=== PATIENT | male | born 1940 | race Caucasian/White ===

== ENCOUNTER 2018-11-28 15:35 | Inpatient (IN) ==
[2018-11-28] MEDS ORDERED: Sod Chloride 0.9% Inj 1,000 ML IV.SIG ONE (16:33)
--- NOTE | 2018-11-28 16:57 | ED ---
HPI General Chief Complaint: Syncope Stated Complaint: Dizzy/evac Time Seen by Provider: 11/28/18 16:17 Source: patient and family (daughter, Liane) Mode of arrival: ambulatory Limitations: no limitations History of Present Illness HPI narrative: 78-year-old male with a history of ESRD on HD Monday, A fib on BASA, h/o C diff s/p fecal transplant presents to the emergency department via EVAC evaluation of a syncopal episode that occurred earlier today and weakness that started a few days ago. Patient was in dialysis this morning and 10 minutes into dialysis he states he "blacked out" and regained consciousness shortly afterwards. Daughter states they 'did not remove any fluid' from in because of this incident. Says when he got home, he was standing up from having a bowel movement and had an episode of falling forward, hitting his chest wall on his walker. Denies hitting his head. Denies chest pain or shortness of breath. States he feels 'ok' and has no complaints. Evac states his SBP was in the 70s that improved to 110s after 500cc NS administered. His daughter assists with the history and states he has had watery , foul-smelling diarrhea over the last couple of days. She believes he has developed C diff. She reports completion of antibiotics recently for MRSA after a hospitalization at [facility]. 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 Dr. Valdes is is PCP. Related Data Home Medications Medication Instructions Recorded Confirmed acidophilus-sporogenes 1 tab PO DAILY 11/28/18 11/28/18 amiodarone 200 mg PO DAILY 11/28/18 11/28/18 aspirin [Aspir-81] 81 mg PO DAILY 11/28/18 11/28/18 atorvastatin 10 mg PO QPM 11/28/18 11/28/18 famotidine 20 mg PO DAILY 11/28/18 11/28/18 fludrocortisone 0.2 mg PO DAILY 11/28/18 11/28/18 fluticasone 1 inh INHALATION Q12H 11/28/18 11/28/18 insulin glargine 15 unit SUBCUT HS 11/28/18 11/28/18 midodrine 10 mg PO BID 11/28/18 11/28/18 vitamin B complex-folic acid 1 tab PO DAILY 11/28/18 11/28/18 Allergies Allergy/AdvReac Type Severity Reaction Status Date / Time No Known Allergies Allergy Verified 11/28/18 15:57 Review of Systems ROS: all other systems reviewed are negative [facility] Medical History Medical History [place] (hard of hearing) (Acute) Hypotension (Acute) C. difficile colitis (Chronic) Diabetes mellitus (Chronic) ESRD (end stage renal disease) on dialysis (Chronic) History of left above knee amputation (Chronic) Surgical History Surgical History Status post unilateral below knee amputation (Acute) Family History Family History Other Family history unknown Social History Social History Substance History: No History of Abuse Second Hand Smoke Exposure: No Smoking Status: Never smoker How Often Do You Have a Drink Containing Alcohol: Never Recent Travel in [facility] within the Last 8 Weeks: No Recent Out of Country Travel within the Last 8 Weeks: No Immunization History Tetanus Immunization: >5 Years Exam Narrative Exam Narrative: GENERAL: WD, WN in NAD SKIN: Focused skin assessment warm/dry. HEAD: Atraumatic. Normocephalic. EYES: Pupils equal and round. No scleral icterus. No injection or drainage. ENT: No nasal bleeding or discharge. Mucous membranes pink and moist. No tonsillar hypertrophy or exudate. NECK: Trachea midline. No JVD. No meningismus. No midline tenderness. CARDIOVASCULAR: Regular rate and rhythm. No murmur appreciated. RESPIRATORY: No accessory muscle use. Clear to auscultation. Breath sounds equal bilaterally. GASTROINTESTINAL: Abdomen soft, non-tender, nondistended. No CVAT. MUSCULOSKELETAL: No obvious deformities. No clubbing. No cyanosis. No edema. No tenderness to palpation of the calves. Sensation intact to bilateral lower extremities. NEUROLOGICAL: Awake and obtunded. No obvious cranial nerve deficits. Motor grossly within normal limits. Normal speech. Answers questions appropriately but slow to answer. PSYCHIATRIC: Appropriate mood and affect; insight and judgment normal. Course Initial Documented Vital Signs Pulse Rate 87 11/28/18 15:46 Respiratory Rate 16 11/28/18 15:46 Blood Pressure 110/53 L 11/28/18 15:46 Pulse Oximetry 98 11/28/18 15:46 Last Documented Vital Signs Temperature 98.1 F 11/29/18 07:45 Pulse Rate 62 11/29/18 07:45 Respiratory Rate 16 11/29/18 07:45 Blood Pressure 102/50 L 11/29/18 07:45 Pulse Oximetry 100 11/29/18 07:45 Medical Decision Making EVERETT Attestation EVERETT supervised visit: Yes Attestation: I, Dr. Pham, have reviewed the advance practice practitioner's documentation and am in agreement, met with the patient face to face, made the diagnosis, and the medical decision making was done by me. *My assessment and Findings: Syncope. History of end-stage renal disease on dialysis. MDM Narrative Medical decision making narrative: 78y male presents to the ED via EVAC for evaluation of 1 syncopal episode, presyncope, generalized weakness, and diarrhea. History is assisted by his daughter who states he has been more fatigued and weak over the last several days. She reports a history of C diff s/ p fecal transplant in June and she has noticed increased, watery, foul diarrhea for the last several days after completing antibiotics for 'MRSA of the spine'. He was last seen at [facility]. Vital signs are stable. Physical exam findings demonstrate a well-developed well-nourished 78-year-old male in no acute distress. He is no complaints. His physical exam is unremarkable at this time. Labs are notable for WBC 9.7, H&H 11.1&33.6, INR 1.1, Potassium 3.1, BUN/Cr 21/ 3.93, Troponin <0.02, BNP 263, UA small leukocyte esterase, WBC 13, few bacteria. Ordered 20meq potassium. Will replenish cautiously d/t his history of ESRD. Head CT without evidence of ICH bleed. CXR without acute process. Patient will be admitted for syncope, presyncope, and generalized weakness. Stool studies pending. I spoke with Dr. Kern who agreed to the admission. Medical Screen Exam Complete: Yes Emergency Medical Condition: Yes Differential Diagnosis Differential Diagnosis: Dehydration, C. difficile, diarrhea, syncope, presyncope , generalized weakness Lab Data Result diagrams: 11/29/18 08:09 11/29/18 08:09 Lab Results 11/28/18 11/28/18 11/28/18 Range/Units 16:42 16:42 16:42 WBC 9.7 (4.0-11.0) th/mm3 RBC 3.52 L (4.50-5.90) mil/mm3 Hgb 11.1 L (13.0-17.0) gm/dL Hct 33.6 L (39.0-51.0) % MCV 95.5 (80.0-100.0) fL MCH 31.6 (27.0-34.0) pg MCHC 33.1 (32.0-36.0) % RDW 17.0 (11.6-17.2) % Plt Count 264 (150-450) th/mm3 MPV 8.7 (7.0-11.0) fL Neut % (Auto) 57.3 (16.0-70.0) % Lymph % (Auto) 32.6 (9.0-44.0) % [place] % (Auto) 7.1 (0.0-8.0) % Eos % (Auto) 2.5 (0.0-4.0) % Baso % (Auto) 0.5 (0.0-2.0) % Neut # (Auto) 5.6 (1.8-7.7) th/mm3 Lymph # (Auto) 3.2 (1.0-4.8) th/mm3 [place] # (Auto) 0.7 (0.0-0.9) th/mm3 Eos # (Auto) 0.2 (0.0-0.4) th/mm3 Baso # (Auto) 0.0 (0.0-0.2) th/mm3 WBC Differential . Differential Comment Auto diff final PT 10.7 (9.8-11.6) sec INR 1.1 Ratio APTT 37.1 H (23.4-31.7) sec Sodium 143 (136-145) meq/L Potassium 3.1 L (3.5-5.1) meq/L Chloride 109 H (98-107) meq/L Carbon Dioxide 25.8 (21.0-32.0) meq/L Anion Gap 8 (5-15) meq/L BUN 21 H (7-18) mg/dL Creatinine 3.93 H (0.60-1.30) mg/dL Estimated GFR 15 L (>89) mL/min POC Glucose (68-110) mg/dl Random Glucose 126 H (74-106) mg/dL Calcium 7.7 L (8.5-10.1) mg/dL Magnesium 1.6 (1.5-2.5) mg/dL Total Bilirubin 0.3 (0.2-1.0) mg/dL AST 16 (15-37) U/L ALT 11 L (12-78) U/L Alkaline Phosphatase 79 (45-117) U/L Troponin I Less than 0.02 L (0.02-0.05) ng/mL B-Natriuretic Peptide (0-100) pg/mL Total Protein 5.9 L (6.4-8.2) g/dL Albumin 2.7 L (3.4-5.0) g/dL Urine Color (Yellw/Straw) Urine Clarity (Clear) Urine pH (5.0-8.5) Ur Specific [place] (1.002-1.035) Urine Protein (Neg-Trace) mg/dL Urine Glucose (UA) (Negative) mg/dL Urine Ketones (Negative) mg/dL Urine Occult Blood (Negative) Urine Nitrate (Negative) Urine Bilirubin (Negative) Urine Urobilinogen (Less than 2) mg/dL Ur Leukocyte Esterase (Negative) Urine RBC (0-3) /hpf Urine WBC (0-5) /hpf Ur Squamous Epith Cells (0-5) /hpf Amorphous Sediment (None) /hpf Urine Bacteria (None) /hpf Micro UA Comment Ur Microscopic Review Urine Culture Comments Stl C.difficile DNA Amp (Negative) St C. diff Tox Epid 027 (Negative) 11/28/18 11/28/18 11/28/18 Range/Units 16:42 18:37 18:38 WBC (4.0-11.0) th/mm3 RBC (4.50-5.90) mil/mm3 Hgb (13.0-17.0) gm/dL Hct (39.0-51.0) % MCV (80.0-100.0) fL MCH (27.0-34.0) pg MCHC (32.0-36.0) % RDW (11.6-17.2) % Plt Count (150-450) th/mm3 MPV (7.0-11.0) fL Neut % (Auto) (16.0-70.0) % Lymph % (Auto) (9.0-44.0) % [place] % (Auto) (0.0-8.0) % Eos % (Auto) (0.0-4.0) % Baso % (Auto) (0.0-2.0) % Neut # (Auto) (1.8-7.7) th/mm3 Lymph # (Auto) (1.0-4.8) th/mm3 [place] # (Auto) (0.0-0.9) th/mm3 Eos # (Auto) (0.0-0.4) th/mm3 Baso # (Auto) (0.0-0.2) th/mm3 WBC Differential Differential Comment PT (9.8-11.6) sec INR Ratio APTT (23.4-31.7) sec Sodium (136-145) meq/L Potassium (3.5-5.1) meq/L Chloride (98-107) meq/L Carbon Dioxide (21.0-32.0) meq/L Anion Gap (5-15) meq/L BUN (7-18) mg/dL Creatinine (0.60-1.30) mg/dL Estimated GFR (>89) mL/min POC Glucose (68-110) mg/dl Random Glucose (74-106) mg/dL Calcium (8.5-10.1) mg/dL Magnesium (1.5-2.5) mg/dL Total Bilirubin (0.2-1.0) mg/dL AST (15-37) U/L ALT (12-78) U/L Alkaline Phosphatase (45-117) U/L Troponin I (0.02-0.05) ng/mL B-Natriuretic Peptide 263 H (0-100) pg/mL Total Protein (6.4-8.2) g/dL Albumin (3.4-5.0) g/dL Urine Color Yellow (Yellw/Straw) Urine Clarity Hazy H (Clear) Urine pH 5.0 (5.0-8.5) Ur Specific [place] 1.014 (1.002-1.035) Urine Protein 30 H (Neg-Trace) mg/dL Urine Glucose (UA) Negative (Negative) mg/dL Urine Ketones Negative (Negative) mg/dL Urine Occult Blood Moderate H (Negative) Urine Nitrate Negative (Negative) Urine Bilirubin Negative (Negative) Urine Urobilinogen Less than 2 (Less than 2) mg/dL Ur Leukocyte Esterase Small H (Negative) Urine RBC 1 (0-3) /hpf Urine WBC 13 H (0-5) /hpf Ur Squamous Epith Cells <1 (0-5) /hpf Amorphous Sediment Rare H (None) /hpf Urine Bacteria Few H (None) /hpf Micro UA Comment Culture indicated Ur Microscopic Review Not Reportable Urine Culture Comments Culture indicated Stl C.difficile DNA Amp Positive H (Negative) St C. diff Tox Epid 027 Positive H (Negative) 11/28/18 11/28/18 11/29/18 Range/Units 21:38 22:45 03:19 WBC (4.0-11.0) th/mm3 RBC (4.50-5.90) mil/mm3 Hgb (13.0-17.0) gm/dL Hct (39.0-51.0) % MCV (80.0-100.0) fL MCH (27.0-34.0) pg MCHC (32.0-36.0) % RDW (11.6-17.2) % Plt Count (150-450) th/mm3 MPV (7.0-11.0) fL Neut % (Auto) (16.0-70.0) % Lymph % (Auto) (9.0-44.0) % [place] % (Auto) (0.0-8.0) % Eos % (Auto) (0.0-4.0) % Baso % (Auto) (0.0-2.0) % Neut # (Auto) (1.8-7.7) th/mm3 Lymph # (Auto) (1.0-4.8) th/mm3 [place] # (Auto) (0.0-0.9) th/mm3 Eos # (Auto) (0.0-0.4) th/mm3 Baso # (Auto) (0.0-0.2) th/mm3 WBC Differential Differential Comment PT (9.8-11.6) sec INR Ratio APTT (23.4-31.7) sec Sodium (136-145) meq/L Potassium (3.5-5.1) meq/L Chloride (98-107) meq/L Carbon Dioxide (21.0-32.0) meq/L Anion Gap (5-15) meq/L BUN (7-18) mg/dL Creatinine (0.60-1.30) mg/dL Estimated GFR (>89) mL/min POC Glucose 89 72 (68-110) mg/dl Random Glucose (74-106) mg/dL Calcium (8.5-10.1) mg/dL Magnesium (1.5-2.5) mg/dL Total Bilirubin (0.2-1.0) mg/dL AST (15-37) U/L ALT (12-78) U/L Alkaline Phosphatase (45-117) U/L Troponin I (0.02-0.05) ng/mL B-Natriuretic Peptide (0-100) pg/mL Total Protein (6.4-8.2) g/dL Albumin (3.4-5.0) g/dL Urine Color (Yellw/Straw) Urine Clarity (Clear) Urine pH (5.0-8.5) Ur Specific [place] (1.002-1.035) Urine Protein (Neg-Trace) mg/dL Urine Glucose (UA) (Negative) mg/dL Urine Ketones (Negative) mg/dL Urine Occult Blood (Negative) Urine Nitrate (Negative) Urine Bilirubin (Negative) Urine Urobilinogen (Less than 2) mg/dL Ur Leukocyte Esterase (Negative) Urine RBC (0-3) /hpf Urine WBC (0-5) /hpf Ur Squamous Epith Cells (0-5) /hpf Amorphous Sediment (None) /hpf Urine Bacteria (None) /hpf Micro UA Comment Ur Microscopic Review Urine Culture Comments Stl C.difficile DNA Amp Positive H (Negative) St C. diff Tox Epid 027 Positive H (Negative) 11/29/18 11/29/18 11/29/18 Range/Units 08:09 08:09 08:31 WBC 10.9 (4.0-11.0) th/mm3 RBC 3.01 L (4.50-5.90) mil/mm3 Hgb 9.7 L (13.0-17.0) gm/dL Hct 28.8 L (39.0-51.0) % MCV 95.7 (80.0-100.0) fL MCH 32.1 (27.0-34.0) pg MCHC 33.5 (32.0-36.0) % RDW 17.4 H (11.6-17.2) % Plt Count 247 (150-450) th/mm3 MPV 8.3 (7.0-11.0) fL Neut % (Auto) 48.4 (16.0-70.0) % Lymph % (Auto) 39.8 (9.0-44.0) % [place] % (Auto) 7.9 (0.0-8.0) % Eos % (Auto) 3.5 (0.0-4.0) % Baso % (Auto) 0.4 (0.0-2.0) % Neut # (Auto) 5.3 (1.8-7.7) th/mm3 Lymph # (Auto) 4.3 (1.0-4.8) th/mm3 [place] # (Auto) 0.9 (0.0-0.9) th/mm3 Eos # (Auto) 0.4 (0.0-0.4) th/mm3 Baso # (Auto) 0.0 (0.0-0.2) th/mm3 WBC Differential . Differential Comment Auto diff final PT (9.8-11.6) sec INR Ratio APTT (23.4-31.7) sec Sodium 145 (136-145) meq/L Potassium 2.9 L* (3.5-5.1) meq/L Chloride 111 H (98-107) meq/L Carbon Dioxide 25.3 (21.0-32.0) meq/L Anion Gap 9 (5-15) meq/L BUN 23 H (7-18) mg/dL Creatinine 4.58 H (0.60-1.30) mg/dL Estimated GFR 12 L (>89) mL/min POC Glucose 48 L* (68-110) mg/dl Random Glucose 43 L* (74-106) mg/dL Calcium 7.7 L (8.5-10.1) mg/dL Magnesium (1.5-2.5) mg/dL Total Bilirubin (0.2-1.0) mg/dL AST (15-37) U/L ALT (12-78) U/L Alkaline Phosphatase (45-117) U/L Troponin I (0.02-0.05) ng/mL B-Natriuretic Peptide (0-100) pg/mL Total Protein (6.4-8.2) g/dL Albumin (3.4-5.0) g/dL Urine Color (Yellw/Straw) Urine Clarity (Clear) Urine pH (5.0-8.5) Ur Specific [place] (1.002-1.035) Urine Protein (Neg-Trace) mg/dL Urine Glucose (UA) (Negative) mg/dL Urine Ketones (Negative) mg/dL Urine Occult Blood (Negative) Urine Nitrate (Negative) Urine Bilirubin (Negative) Urine Urobilinogen (Less than 2) mg/dL Ur Leukocyte Esterase (Negative) Urine RBC (0-3) /hpf Urine WBC (0-5) /hpf Ur Squamous Epith Cells (0-5) /hpf Amorphous Sediment (None) /hpf Urine Bacteria (None) /hpf Micro UA Comment Ur Microscopic Review Urine Culture Comments Stl C.difficile DNA Amp (Negative) St C. diff Tox Epid 027 (Negative) 11/29/18 11/29/18 11/29/18 Range/Units 08:38 09:27 09:54 WBC (4.0-11.0) th/mm3 RBC (4.50-5.90) mil/mm3 Hgb (13.0-17.0) gm/dL Hct (39.0-51.0) % MCV (80.0-100.0) fL MCH (27.0-34.0) pg MCHC (32.0-36.0) % RDW (11.6-17.2) % Plt Count (150-450) th/mm3 MPV (7.0-11.0) fL Neut % (Auto) (16.0-70.0) % Lymph % (Auto) (9.0-44.0) % [place] % (Auto) (0.0-8.0) % Eos % (Auto) (0.0-4.0) % Baso % (Auto) (0.0-2.0) % Neut # (Auto) (1.8-7.7) th/mm3 Lymph # (Auto) (1.0-4.8) th/mm3 [place] # (Auto) (0.0-0.9) th/mm3 Eos # (Auto) (0.0-0.4) th/mm3 Baso # (Auto) (0.0-0.2) th/mm3 WBC Differential Differential Comment PT (9.8-11.6) sec INR Ratio APTT (23.4-31.7) sec Sodium (136-145) meq/L Potassium (3.5-5.1) meq/L Chloride (98-107) meq/L Carbon Dioxide (21.0-32.0) meq/L Anion Gap (5-15) meq/L BUN (7-18) mg/dL Creatinine (0.60-1.30) mg/dL Estimated GFR (>89) mL/min POC Glucose 50 L 54 L 70 (68-110) mg/dl Random Glucose (74-106) mg/dL Calcium (8.5-10.1) mg/dL Magnesium (1.5-2.5) mg/dL Total Bilirubin (0.2-1.0) mg/dL AST (15-37) U/L ALT (12-78) U/L Alkaline Phosphatase (45-117) U/L Troponin I (0.02-0.05) ng/mL B-Natriuretic Peptide (0-100) pg/mL Total Protein (6.4-8.2) g/dL Albumin (3.4-5.0) g/dL Urine Color (Yellw/Straw) Urine Clarity (Clear) Urine pH (5.0-8.5) Ur Specific [place] (1.002-1.035) Urine Protein (Neg-Trace) mg/dL Urine Glucose (UA) (Negative) mg/dL Urine Ketones (Negative) mg/dL Urine Occult Blood (Negative) Urine Nitrate (Negative) Urine Bilirubin (Negative) Urine Urobilinogen (Less than 2) mg/dL Ur Leukocyte Esterase (Negative) Urine RBC (0-3) /hpf Urine WBC (0-5) /hpf Ur Squamous Epith Cells (0-5) /hpf Amorphous Sediment (None) /hpf Urine Bacteria (None) /hpf Micro UA Comment Ur Microscopic Review Urine Culture Comments Stl C.difficile DNA Amp (Negative) St C. diff Tox Epid 027 (Negative) Imaging Data Radiologist's impression: Carotid Doppler Study 11/28/18 00:00 CONCLUSION: No hemodynamically significant stenosis involving either carotid artery. Antegrade flow involving both vertebral arteries. Chest X-Ray 11/28/18 16:33 CONCLUSION: Dialysis catheter in good position. Lungs are clear Head CT 11/28/18 16:33 CONCLUSION: 1. No acute intracranial abnormality. . ECG Data Attestation: I personally reviewed and interpreted this ECG as follows: Prior ECG tracings: not available for review Interpretation: sinus rhythm rate [address] elevation or depressions. Discharge Plan Discharge Disposition Patient Disposition: ED Admit(ED Internal Use Only) Discharge Condition Condition: Stable Discharge Order Discharge Orders: ED Use Only Admit Order (Routine); Ordered 11/28/18 Ordered By: Catina Inman Discharge Details Diagnosis: Syncope Physicians Team ED Provider: Bg Pham ED Midlevel Provider: Catina Inman Primary Care Provider: UNKNOWN, Attending Provider: Maribel Calvert Other Providers: Mayco Sawyer Status ED Status: Left Department Discharge Information Discharge Date/Time: 11/28/18 21:05
--- NOTE | 2018-11-28 17:12 | XR ---
EXAM DATE: 11/28/2018 5:00 PM EST AGE/SEX: 78 years / Male INDICATIONS: Evaluate Diaphragm. CLINICAL DATA: This is the patient's initial encounter. Patient reports that signs and symptoms have been present for 2 days and indicates a pain score of Nonresponsive. MEDICAL/SURGICAL HISTORY: Non-responsive. Non-responsive. COMPARISON: No prior exams available for comparison. FINDINGS: Dialysis catheter in good position. Lungs are symmetrically aerated but clear. The heart and pulmonary vascularity are normal. The portion of the bony skeleton visualized is unremarkable. CONCLUSION: Dialysis catheter in good position. Lungs are clear Electronically signed by: Samson Garay MD Board Certified Radiologist 11/28/2018 5:11 PM EST
--- NOTE | 2018-11-28 17:22 | CT ---
EXAM DATE: 11/28/2018 5:17 PM EST AGE/SEX: 78 years / Male INDICATIONS: Syncopal episode. CLINICAL DATA: This is the patient's initial encounter. Patient reports that signs and symptoms have been present for 1 day and indicates a pain score of 0/10. MEDICAL/SURGICAL HISTORY: Diabetes. Hypertension. Renal disease. None. RADIATION DOSE: 56.35 CTDI (mGy) COMPARISON: No prior exams available for comparison. TECHNIQUE: CT of the head without contrast. Using automated exposure control and adjustment of the mA and/or kV according to patient size, radiation dose was kept as low as reasonably achievable to ob tain optimal diagnostic quality images. DICOM format image data is available electronically for revi ew and comparison. FINDINGS: Cerebrum: The ventricles are normal for age. No evidence of midline shift, mass lesion, hemorrhage or acute infarction. No extraaxial fluid collections are seen. Posterior Fossa: The cerebellum and brainstem are intact. The 4th ventricle is midline. The cerebe llopontine angle is unremarkable. Extracranial: The visualized portion of the orbits is intact. Mucoperiosteal thickening left maxilla ry sinus. Skull: The calvaria is intact. No evidence of skull fracture. CONCLUSION: 1. No acute intracranial abnormality. . Electronically signed by: Jose Roberto Torres MD Board Certified Radiologist 11/28/2018 5:21 PM EST
[2018-11-28 17:41] LABS: Baso % (Auto) 0.5 % (0.0-2.0); Eos # (Auto) 0.2 th/mm3 (0.0-0.4); Eos % (Auto) 2.5 % (0.0-4.0); Hematocrit 33.6 % (39.0-51.0); Hemoglobin 11.1 gm/dL (13.0-17.0); Lymph # (Auto) 3.2 th/mm3 (1.0-4.8); Lymph % (Auto) 32.6 % (9.0-44.0); Mean Corpuscular HGB Conc 33.1 % (32.0-36.0); Mean Corpuscular Hemoglobin 31.6 pg (27.0-34.0); Mean Corpuscular Volume 95.5 fL (80.0-100.0); Mean Platelet Volume 8.7 fL (7.0-11.0); Mono # (Auto) 0.7 th/mm3 (0.0-0.9); Mono % (Auto) 7.1 % (0.0-8.0); Neut # (Auto) 5.6 th/mm3 (1.8-7.7); Neut % (Auto) 57.3 % (16.0-70.0); Platelet Count 264 th/mm3 (150-450); Red Blood Count 3.52 mil/mm3 (4.50-5.90); White Blood Count 9.7 th/mm3 (4.0-11.0)
[2018-11-28 17:48] LABS: Activated Partial Thrombo Time 37.1 sec (23.4-31.7); INR 1.1 Ratio; Prothrombin Time 10.7 sec (9.8-11.6)
[2018-11-28 18:36] LABS: Albumin 2.7 g/dL (3.4-5.0); Anion Gap 8 meq/L (5-15); Aspartate Aminotransferase 16 U/L (15-37); Blood Urea Nitrogen 21 mg/dL (7-18); Calcium 7.7 mg/dL (8.5-10.1); Carbon Dioxide 25.8 meq/L (21.0-32.0); Chloride 109 meq/L (98-107); Glomerular Filtration Rate 15 mL/min (>89); Glucose,Random 126 mg/dL (74-106); Magnesium 1.6 mg/dL (1.5-2.5); Potassium 3.1 meq/L (3.5-5.1); Sodium 143 meq/L (136-145)
[2018-11-28 18:43] LABS: Alanine Aminotransferase 11 U/L (12-78); Alkaline Phosphatase 79 U/L (45-117); Total Protein 5.9 g/dL (6.4-8.2)
[2018-11-28 19:20] LABS: Amorphous Sediment,Urine Rare /hpf; Bacteria,Urine Few /hpf; Bilirubin,Urine Negative (Negative); Clarity,Urine Hazy (Clear); Color,Urine Yellow (Yellw/Straw); Glucose,Urine (UA) Negative (Negative); Leukocyte Esterase,Urine Small (Negative); Nitrite,Urine Negative (Negative); Specific Gravity,Urine 1.014 (1.002-1.035); Squamous Epithelial Cell,Urine <1 /hpf (0-5)
[2018-11-28] MEDS ORDERED: Dextrose 50% in Water 50 ML Vial IV.PUSH PRN (20:34)
--- NOTE | 2018-11-28 20:34 | P.HPIM ---
History of Present Illness Primary Care Physician: UNKNOWN 78-year-old male with a past medical history significant for end-stage renal disease on dialysis, diabetes mellitus, hypotension, and hyperlipidemia presents to the emergency department for evaluation of a syncopal episode. The patient reports he was in dialysis earlier today when he felt dizzy and lightheaded and subsequently "blacked out." EMS was called with the patient refused transport at that time. He states later on in the day when he was leaving the restroom he had similar symptoms although denies any loss of consciousness at that time. He states he felt dizzy and lightheaded and had to prop himself up against the wall for extra support. The patient was recently hospitalized at [facility] where he was treated for MRSA infection. He states he was discharged approximately 1 week ago. He has a history of C. difficile and is status post fecal transplantation within the last year. He has a 3-day history of watery, explosive diarrhea that is foul-smelling. He denies any chest pain or shortness of breath. Intermittent crampy abdominal pain. No focal neurologic deficits. No fever/chills. [facility] Medical History Medical History [place] (hard of hearing) (Acute) Hypotension (Acute) C. difficile colitis (Chronic) Diabetes mellitus (Chronic) ESRD (end stage renal disease) on dialysis (Chronic) History of left above knee amputation (Chronic) Surgical History Surgical History Status post unilateral below knee amputation (Acute) Family History Family History Other Family history unknown Social History Social History Substance History: No History of Abuse Smoking Status: Former smoker How Often Do You Have a Drink Containing Alcohol: Never Recent Travel in [facility] within the Last 8 Weeks: No Recent Out of Country Travel within the Last 8 Weeks: No Immunization History Tetanus Immunization: >5 Years Medications and Allergies Allergies Allergy/AdvReac Type Severity Reaction Status Date / Time No Known Allergies Allergy Verified 11/28/18 15:57 Home Medications Medication Instructions Recorded Confirmed Type acidophilus-sporogenes 1 tab PO DAILY 11/28/18 11/28/18 History amiodarone 200 mg PO DAILY 11/28/18 11/28/18 History aspirin [Aspir-81] 81 mg PO DAILY 11/28/18 11/28/18 History atorvastatin 10 mg PO QPM 11/28/18 11/28/18 History famotidine 20 mg PO DAILY 11/28/18 11/28/18 History fludrocortisone 0.2 mg PO DAILY 11/28/18 11/28/18 History fluticasone 1 inh INHALATION Q12H 11/28/18 11/28/18 History insulin glargine 15 unit SUBCUT HS 11/28/18 11/28/18 History midodrine 10 mg PO BID 11/28/18 11/28/18 History vitamin B complex-folic acid 1 tab PO DAILY 11/28/18 11/28/18 History Active Medications: Active Medications Amiodarone HCl (Cordarone) 200 mg PO DAILY [facility] Aspirin (Ecotrin) 81 mg PO DAILY [facility] Atorvastatin Calcium (Lipitor) 10 mg PO QPM [facility] Fludrocortisone Acetate (Florinef) 0.2 mg PO DAILY [facility] Lactobacillus Acidophilus (Lactinex) 1 tab PO DAILY [facility] Non-Formulary Medication (Midodrine [Midodrine]) 10 mg PO BID [facility] Non-Formulary Medication (Insulin Glargine Inj) 15 unit SQ HS [facility] Physical Exam Vital signs: Vital Signs 11/28/18 15:46 11/28/18 15:57 11/28/18 17:24 Pulse Rate 87 77 76 Respiratory Rate 16 18 Blood Pressure 110/53 L Pulse Oximetry 98 98 11/28/18 18:14 11/28/18 19:03 Pulse Rate 75 75 Respiratory Rate 18 18 Blood Pressure 117/58 L 115/58 L Pulse Oximetry 100 95 Intake & Output 11/28/18 11/28/18 11/29/18 06:59 18:59 06:59 Intake Total 1000 / 1000 Balance 1000 / 1000 Weight 90.718 kg Intake: IV 1000 / 1000 NS Inj 1,000 ML @ Wide Open IV. 1000 / 1000 SIG BOLUS ONE Rx#:[id number] Narrative: Gen.: No acute distress Head: Normocephalic. Atraumatic. EENT: Pupils equal round and reactive to light. Nose without drainage. Airway intact. Throat without injection. Cardiovascular: Regular rate and rhythm. No murmurs, rubs or gallops. Respiratory: Lungs clear to auscultation bilaterally. No wheezes or rhonchi. Abdomen: Soft, nontender, nondistended. No peritoneal signs. Musculoskeletal: No gross deformities. No edema. Skin: No obvious rashes or erythema. Neuro: Sensory and motor grossly intact. Cranial nerves II through XII grossly intact. Results Labs CBC & Chem 7: 11/28/18 16:42 11/28/18 16:42 Imaging Impressions Chest X-Ray 11/28/18 16:33 CONCLUSION: Dialysis catheter in good position. Lungs are clear Head CT 11/28/18 16:33 CONCLUSION: 1. No acute intracranial abnormality. . Caprini VTE Risk Assessment Caprini VTE Risk Assessment: Moderate/High Risk (score >= 2) Caprini Risk Assessment Model: Point Value = 1 Point Value = 2 Point Value = 3 Point Value = 5 Age 41-60 Minor surgery BMI > 25 kg/m2 Swollen legs Varicose veins or History of unexplained or recurrent spontaneous Oral contraceptives or hormone replacement Sepsis (< 1 month) Serious lung disease, including pneumonia (< 1 month) Abnormal pulmonary function Acute myocardial infarction Congestive heart failure (< 1 month) History of inflammatory bowel disease Medical patient at bed rest Age 61-74 Arthroscopic surgery Major open surgery (> 45 min) Laparoscopic surgery (> 45 min) Malignancy Confined to bed (> 72 hours) Immobilizing plaster cast Central venous access Age >= 75 History of VTE Family history of VTE Factor V Leiden Prothrombin [id number] Lupus anticoagulant Anticardiolipin antibodies Elevated serum homocysteine Heparin-induced thrombocytopenia Other congenital or acquired thrombophilia Stroke (< 1 month) Elective arthroplasty Hip, pelvis, or leg fracture Acute spinal cord injury (< 1 month) Prophylaxis Regimen: Total Risk Factor Score Risk Level Prophylaxis Regimen 0-1 Low Early ambulation 2 Moderate Order ONE of the following: *Sequential Compression Device (SCD) *Heparin 5000 units SQ BID 3-4 Higher Order ONE of the following medications: *Heparin 5000 units SQ TID *Enoxaparin/Lovenox 40 mg SQ daily (WT < 150 kg, CrCl > 30 mL/min) *Enoxaparin/Lovenox 30 mg SQ daily (WT < 150 kg, CrCl > 10-29 mL/min) *Enoxaparin/Lovenox 30 mg SQ BID (WT < 150 kg, CrCl > 30 mL/min) AND/OR *Sequential Compression Device (SCD) 5 or more Highest Order ONE of the following medications: *Heparin 5000 units SQ TID (Preferred with Epidurals) *Enoxaparin/Lovenox 40 mg SQ daily (WT < 150 kg, CrCl > 30 mL/min) *Enoxaparin/Lovenox 30 mg SQ daily (WT < 150 kg, CrCl > 10-29 mL/min) *Enoxaparin/Lovenox 30 mg SQ BID (WT < 150 kg, CrCl > 30 mL/min) AND *Sequential Compression Device (SCD) Assessment and Plan Plan Assessment/plan: 1. Syncope Head CT negative for acute process Orthostatic vital signs pending, patient with history of hypotension Carotid ultrasound, echo pending 2. Diarrhea/history of C. difficile C. difficile toxin pending Stool studies pending Patient recently discharged from [facility] was treated with antibiotics for MRSA 3. Diabetes mellitus Continue home Lantus Sliding-scale insulin Monitor blood glucose 4. End-stage renal disease on dialysis Last dialyzed earlier today Patient's user interface artist, Dr. Braun consulted, appreciate assistance FEN Diabetic diet Electrolytes: Monitor and replete as needed Heparin
[2018-11-28] MEDS ORDERED: INSULIN GLARGINE 15 UNIT SQ SCH (21:00)
[2018-11-28] MEDS ORDERED: MIDODRINE 10 MG PO SCH (21:00)
--- NOTE | 2018-11-28 21:18 | US ---
EXAM DATE: 11/28/2018 9:12 PM EST AGE/SEX: 78 years / Male INDICATIONS: Syncope. CLINICAL DATA: This is the patient's initial encounter. Patient reports that signs and symptoms have been present for 1 day and indicates a pain score of 0/10. MEDICAL/SURGICAL HISTORY: Hypothyroidism. Diabetes. Renal disease, end stage. Dialysis. C. Difficile colitis - June 2018. . Left above the knee amputation. COMPARISON: No prior exams available for comparison. VELOCITY PARAMETERS: ICA/CCA Ratio: Right 1.0 , Left 0.8 ICA: Right 114 cm/sec, Left 130 cm/sec CCA: Right 103 cm/sec, Left 129 cm/sec ECA: Right 128 cm/sec, Left 81 cm/sec Vertebral: Right 35 cm/sec antegrade, Left 56 cm/sec antegrade FINDINGS: Right Carotid: Mild arteriosclerotic plaque is visualized.The waveforms are within normal limits. Left Carotid: Mild arteriosclerotic plaque is visualized. The waveforms are within normal limits. Other: None. CONCLUSION: No hemodynamically significant stenosis involving either carotid artery. Antegrade flow involving both vertebral arteries. Electronically signed by: Sharif Marques MD Board Certified Radiologist 11/28/2018 9:17 PM EST
[2018-11-28] MEDS: Insulin NovoLOG Aspart Correctional Sugar Inj SQ SCH (21:44)
[2018-11-28] MEDS ORDERED: Insulin Detemir Inj 1,000 UNIT/10 ML Vial SQ SCH (22:00)
[2018-11-28] MEDS: Heparin - SQ 10,000 UNITS/ML Vial SQ SCH (22:22)
[2018-11-29] MEDS: Insulin NovoLOG Aspart Correctional Sugar Inj SQ SCH ×5 (03:28→21:11)
[2018-11-29] MEDS: Lactobacillus Acidophilus/L. Spores Tablet PO SCH (08:33)
[2018-11-29] MEDS: Amiodarone 200 MG Tablet PO SCH (08:33)
[2018-11-29] MEDS: Heparin - SQ 10,000 UNITS/ML Vial SQ SCH ×2 (08:33→21:11)
[2018-11-29 08:59] LABS: Baso % (Auto) 0.4 % (0.0-2.0); Eos # (Auto) 0.4 th/mm3 (0.0-0.4); Eos % (Auto) 3.5 % (0.0-4.0); Hematocrit 28.8 % (39.0-51.0); Hemoglobin 9.7 gm/dL (13.0-17.0); Lymph # (Auto) 4.3 th/mm3 (1.0-4.8); Lymph % (Auto) 39.8 % (9.0-44.0); Mean Corpuscular HGB Conc 33.5 % (32.0-36.0); Mean Corpuscular Hemoglobin 32.1 pg (27.0-34.0); Mean Corpuscular Volume 95.7 fL (80.0-100.0); Mean Platelet Volume 8.3 fL (7.0-11.0); Mono # (Auto) 0.9 th/mm3 (0.0-0.9); Mono % (Auto) 7.9 % (0.0-8.0); Neut # (Auto) 5.3 th/mm3 (1.8-7.7); Neut % (Auto) 48.4 % (16.0-70.0); Platelet Count 247 th/mm3 (150-450); Red Blood Count 3.01 mil/mm3 (4.50-5.90); Red Cell Distribution Width 17.4 % (11.6-17.2); White Blood Count 10.9 th/mm3 (4.0-11.0)
[2018-11-29 09:41] LABS: Calcium 7.7 mg/dL (8.5-10.1); Carbon Dioxide 25.3 meq/L (21.0-32.0)
--- NOTE | 2018-11-29 10:10 | P.CONNP ---
<Karin Shirley - Last Filed: 11/29/18 09:59> History of Present Illness Service: Nephrology Consult date: 11/29/18 Requesting Physician: Valeria Kern Reason for Consult: Management of end stage renal disease Primary Care Provider: UNKNOWN History of Present Illness: Patient is a 78-year-old male with a past medical history significant for end- stage renal disease on dialysis, diabetes mellitus, hypotension, hx of c diff, hx of recent antibiotics for MRSA infection, and hyperlipidemia. Presents to the emergency department for evaluation of a syncopal episode. The patient reports he was in dialysis when he felt dizzy and lightheaded and subsequently "blacked out." EMS was called with the patient refused transport at that time. He states later on in the day when he was leaving the restroom he had similar symptoms although denies any loss of consciousness at that time. He states he felt dizzy and lightheaded and had to prop himself up against the wall for extra support. The patient was recently hospitalized at [facility] where he was treated for MRSA infection. He states he was discharged approximately 1 week ago. He has a history of C. difficile and is status post fecal transplantation within the last year. He has a 3-day history of watery, explosive diarrhea that is foul-smelling. Nephrology is consulted for management of end stage renal disease. Hemodialysis on Monday, Monday, and Monday with right chest wall permacath. Denies any shortness of breath, chest pain, nausea, or vomiting. Has diarrhea. Review of Systems All other systems reviewed negative except as stated in HPI PMFSH - History History Provided By: Patient - Medical History Medical History: Medical History (Last Reviewed 11/28/18 @ 20:30 by Valeria Kern MD) [place] (hard of hearing) Hypotension C. difficile colitis Diabetes mellitus ESRD (end stage renal disease) on dialysis History of left above knee amputation - Surgical History Surgical History: Surgical History (Last Updated 11/28/18 @ 20:31 by Valeria Kern MD) Status post unilateral below knee amputation - Family History Family History: Family History Other Family history unknown - Tobacco History Second Hand Smoke Exposure: No Smoking Status: Never smoker - Alcohol History How Often Do You Have a Drink Containing Alcohol: Never - Substance Use History Substance History: No History of Abuse - Travel History Recent Travel in the [place] Within the Last 8 Weeks: No Recent Travel Out of the Country Within the Last 8 Weeks: No - Immunization History Tetanus Immunization: >5 Years Medications and Allergies Allergies Allergy/AdvReac Type Severity Reaction Status Date / Time No Known Allergies Allergy Verified 11/28/18 15:57 Home Medications Medication Instructions Recorded Confirmed Type acidophilus-sporogenes 1 tab PO DAILY 11/28/18 11/28/18 History amiodarone 200 mg PO DAILY 11/28/18 11/28/18 History aspirin [Aspir-81] 81 mg PO DAILY 11/28/18 11/28/18 History atorvastatin 10 mg PO QPM 11/28/18 11/28/18 History famotidine 20 mg PO DAILY 11/28/18 11/28/18 History fludrocortisone 0.2 mg PO DAILY 11/28/18 11/28/18 History fluticasone 1 inh INHALATION Q12H 11/28/18 11/28/18 History insulin glargine 15 unit SUBCUT HS 11/28/18 11/28/18 History midodrine 10 mg PO BID 11/28/18 11/28/18 History vitamin B complex-folic acid 1 tab PO DAILY 11/28/18 11/28/18 History Active Medications: Active Medications Amiodarone HCl (Cordarone) 200 mg PO DAILY [facility] Last Admin: 11/29/18 08:33 Dose: 200 mg Aspirin (Ecotrin) 81 mg PO DAILY [facility] Last Admin: 11/29/18 08:33 Dose: 81 mg Atorvastatin Calcium (Lipitor) 10 mg PO QPM [facility] Dextrose (D50w Vial) 50 ml IV.PUSH UNSCH PRN PRN Reason: PER HYPOGLYCEMIA PROTOCOL Fludrocortisone Acetate (Florinef) 0.2 mg PO DAILY [facility] Last Admin: 11/29/18 08:33 Dose: 0.2 mg Glucagon (Glucagon Inj) 1 mg OTHER PRN PRN PRN Reason: for Hypoglycemia Protocol Heparin Sodium (Porcine) (Heparin Inj) 5,000 units SQ Q12HR [facility] Last Admin: 11/29/18 08:33 Dose: 5,000 units Insulin Aspart (Novolog Insulin Correctional Sugar Inj) 0 unit SQ ACHS AND 3AM [facility]; Protocol Last Admin: 11/29/18 08:42 Dose: Not Given Insulin Detemir (Levemir Inj) 15 unit SQ HS [facility] Last Admin: 11/28/18 22:22 Dose: 15 unit Lactobacillus Acidophilus (Lactinex) 1 tab PO DAILY [facility] Last Admin: 11/29/18 08:33 Dose: 1 tab Midodrine (Proamatine) 10 mg PO BID [facility] Last Admin: 11/29/18 08:33 Dose: 10 mg Exam Vital signs: Vital Signs 11/28/18 15:46 11/28/18 15:57 11/28/18 17:24 Temperature Pulse Rate 87 77 76 Respiratory Rate 16 18 Blood Pressure 110/53 L Pulse Oximetry 98 98 11/28/18 18:14 11/28/18 19:03 11/28/18 21:18 Temperature 98.3 F Pulse Rate 75 75 75 Respiratory Rate 18 18 12 Blood Pressure 117/58 L 115/58 L 95/53 L Pulse Oximetry 100 95 96 11/28/18 23:00 11/29/18 00:00 11/29/18 03:15 Temperature 98.4 F 98 F Pulse Rate 79 73 68 Respiratory Rate 15 16 Blood Pressure 107/51 L 122/58 L Pulse Oximetry 98 11/29/18 07:45 Temperature 98.1 F Pulse Rate 62 Respiratory Rate 16 Blood Pressure 102/50 L Pulse Oximetry 100 Intake & Output 11/28/18 11/29/18 11/29/18 18:59 06:59 18:59 Intake Total 1000 / 1000 480 / 480 Balance 1000 / 1000 480 / 480 Weight 90.718 kg 90.718 kg Intake: IV 1000 / 1000 NS Inj 1,000 ML @ Wide Open IV. 1000 / 1000 SIG BOLUS ONE Rx#:[id number] Oral 480 / 480 Other: # Voids 0 Date of Last Bowel Movement 11/28/18 # Bowel Movements 1 Weight On Admission 90.718 kg Narrative: GENERAL: Alert and oriented. SKIN: Warm and dry. Drg on right arm and right lower extremity NECK: Supple, trachea midline. No JVD CARDIOVASCULAR: Regular rate and rhythm without murmurs, gallops, or rubs. RESPIRATORY: Breath sounds equal bilaterally. No accessory muscle use. GASTROINTESTINAL: Abdomen soft, non-tender, nondistended. +BS. MUSCULOSKELETAL: No cyanosis, Left BKA. Right lower extremity with mild edema. BACK: Nontender without obvious deformity. No CVA tenderness. Results - Lab Results 11/29/18 08:09 11/28/18 16:42 Most recent lab results Calcium 7.7 mg/dL (8.5-10.1) L 11/28/18 16:42 Magnesium 1.6 mg/dL (1.5-2.5) 11/28/18 16:42 Assessment and Plan - Assessment (1) End-stage renal disease on hemodialysis Code(s): N18.6 - End stage renal disease; Z99.2 - Dependence on renal dialysis Status: Acute Plan: End stage renal disease on HD on Monday, Monday, Monday Right chest wall permacath followed by Dr. Braun outpatient last hemodialysis on Monday Will continue with HD on above scheduled days, orders placed Epogen with dialysis Continue florinef and midodrine for hypotension HD planned for tomorrow. (2) C. difficile diarrhea Code(s): A04.72 - Enterocolitis due to Clostridium difficile, not specified as recurrent Status: Acute Plan: HX of C difficile and recent antibiotics. On probiotic. (3) Syncope Code(s): R55 - Syncope and collapse Status: Acute Plan: Head CT negative, work up underway. (4) Diabetes Code(s): E11.9 - Type 2 diabetes mellitus without complications Status: Acute Plan: Maintain blood sugar between 140 mg/dl to 180 mg/dl while hospitalized. On insulin. <Mayco Sawyer - Last Filed: 12/01/18 21:49> History of Present Illness Primary Care Provider: UNKNOWN [facility] - Medical History Medical History: Medical History (Last Reviewed 11/28/18 @ 20:30 by Valeria Kern MD) [place] (hard of hearing) Hypotension C. difficile colitis Diabetes mellitus ESRD (end stage renal disease) on dialysis History of left above knee amputation - Surgical History Surgical History: Surgical History (Last Updated 11/28/18 @ 20:31 by Valeria Kern MD) Status post unilateral below knee amputation - Family History Family History: Family History Other Family history unknown Medications and Allergies Active Medications: Active Medications Acetaminophen (Tylenol) 650 mg PO UNSCH PRN PRN Reason: SEE LABEL COMMENTS Amiodarone HCl (Cordarone) 200 mg PO DAILY [facility] Last Admin: 12/01/18 10:09 Dose: 200 mg Aspirin (Ecotrin) 81 mg PO DAILY [facility] Last Admin: 12/01/18 10:09 Dose: 81 mg Atorvastatin Calcium (Lipitor) 10 mg PO QPM [facility] Last Admin: 12/01/18 18:26 Dose: 10 mg Clonidine HCl (Catapres) 0.1 mg PO UNSCH PRN PRN Reason: SEE LABEL COMMENTS Dextrose (D50w Vial) 50 ml IV.PUSH UNSCH PRN PRN Reason: PER HYPOGLYCEMIA PROTOCOL Diphenhydramine HCl (Benadryl) 25 mg PO UNSCH PRN PRN Reason: SEE LABEL COMMENTS Epoetin Jung (Epogen Inj) 6,000 unit IV.PUSH UNSCH PRN PRN Reason: SEE LABEL COMMENTS Fidaxomicin (Dificid) 200 mg PO BID [facility] Stop: 12/10/18 20:59 Last Admin: 12/01/18 10:09 Dose: 200 mg Fludrocortisone Acetate (Florinef) 0.2 mg PO DAILY [facility] Last Admin: 12/01/18 10:09 Dose: 0.2 mg Gelatin (Gelfoam 12 Mm/7 Mm Topical) 1 foam TOPICAL PRN PRN PRN Reason: help stop bleeding from site Gentamicin Sulfate (Gentamicin Inj) 20 mg OTHER WITH DIALYSIS PRN PRN Reason: Dwell Gentamycin Lock Glucagon (Glucagon Inj) 1 mg OTHER PRN PRN PRN Reason: for Hypoglycemia Protocol Heparin Sodium (Porcine) (Heparin Inj) 5,000 units SQ Q12HR [facility] Last Admin: 12/01/18 10:09 Dose: 5,000 units Heparin Sodium (Porcine) (Heparin Inj) 8,000 units OTHER WITH DIALYSIS PRN PRN Reason: for machine prime Heparin Sodium (Porcine) (Heparin Inj) 1,000 units OTHER WITH DIALYSIS PRN PRN Reason: Dwell Heparin to Fill Catheter Albumin Human (Flexbumin 25% Inj) 100 mls @ 60 mls/hr IV.SIG WITH DIALYSIS PRN PRN Reason: hypotension / volume replace Sodium Chloride (Ns Inj) 1,000 mls @ 0 mls/hr OTHER .Q0M PRN PRN Reason: for prime and rinse back Sodium Chloride (Ns Inj) 1,000 mls @ 200 mls/hr OTHER .Q5H PRN PRN Reason: for dialyzer flush PRN Sodium Chloride (Ns Inj) 1,000 mls @ 0 mls/hr IV.CONT .Q0M PRN PRN Reason: hypotension / volume replace Insulin Aspart (Novolog Insulin Correctional Sugar Inj) 0 unit SQ ACHS AND 3AM [facility]; Protocol Last Admin: 12/01/18 18:25 Dose: Not Given Insulin Detemir (Levemir Inj) 15 unit SQ HS [facility] Last Admin: 11/28/18 22:22 Dose: 15 unit Lactobacillus Acidophilus (Lactinex) 1 tab PO DAILY [facility] Last Admin: 12/01/18 10:09 Dose: 1 tab Mannitol (Mannitol Inj) 12.5 gm IV.PUSH UNSCH PRN PRN Reason: hypotension / volume replace Midodrine (Proamatine) 10 mg PO BID [facility] Last Admin: 12/01/18 10:09 Dose: 10 mg Nitroglycerin (Nitrostat Sl) 0.4 mg SL Q5M PRN PRN Reason: CHEST PAIN Ondansetron HCl (Zofran Inj) 4 mg IV.PUSH UNSCH PRN PRN Reason: NAUSEA OR VOMITING Sodium Chloride (Ns Flush) 5 ml IV.FLUSH PRN PRN PRN Reason: flush each lumen during HD Vancomycin HCl (Vancomycin Po) 125 mg PO QID [facility] Last Admin: 12/01/18 18:25 Dose: 125 mg Exam Vital signs: Vital Signs 11/30/18 22:00 12/01/18 00:00 12/01/18 01:00 Temperature 97.4 F L Pulse Rate 67 65 Respiratory Rate 18 Blood Pressure 115/56 L Pulse Oximetry 95 96 12/01/18 03:48 12/01/18 04:00 12/01/18 08:00 Temperature 97.5 F L 98.1 F Pulse Rate 68 66 69 Respiratory Rate 18 17 Blood Pressure 115/61 131/60 Pulse Oximetry 94 L 95 12/01/18 12:00 Temperature 98.3 F Pulse Rate 89 Respiratory Rate 17 Blood Pressure 99/51 L Pulse Oximetry 97 Intake & Output 12/01/18 12/01/18 12/02/18 06:59 18:59 06:59 Intake Total 1400 / 1400 Balance 1400 / 1400 Weight 78 kg Intake: Oral 1400 / 1400 Other: # Incontinent Voids 3 Date of Last Bowel Movement 12/01/18 12/01/18 # Bowel Movements 1 # Incontinent Bowel Movements 3 2 Results - Lab Results 11/30/18 08:25 12/01/18 14:29 Most recent lab results Calcium 8.0 mg/dL (8.5-10.1) L 12/01/18 14:29 Magnesium 1.6 mg/dL (1.5-2.5) 11/28/18 16:42 Assessment and Plan - Assessment (1) End-stage renal disease on hemodialysis Code(s): N18.6 - End stage renal disease; Z99.2 - Dependence on renal dialysis Status: Acute Plan: Patient seen and examined, agree with above. Patient has been on HD MWF. Chronic Hypotension, on Midodrine and Florinef. (2) C. difficile diarrhea Code(s): A04.72 - Enterocolitis due to Clostridium difficile, not specified as recurrent Status: Acute (3) Syncope Code(s): R55 - Syncope and collapse Status: Acute (4) Diabetes Code(s): E11.9 - Type 2 diabetes mellitus without complications Status: Acute <Karin Shirley - Last Filed: 11/29/18 09:59> (3) Syncope Qualifiers: Syncope type: unspecified Qualified Code(s): R55 - Syncope and collapse <Mayco Sawyer - Last Filed: 12/01/18 21:49> (3) Syncope Qualifiers: Syncope type: unspecified Qualified Code(s): R55 - Syncope and collapse
[2018-11-29 10:22] LABS: Potassium 2.9 meq/L (3.5-5.1)
--- NOTE | 2018-11-29 11:51 | ECG ---
Date Performed: 11/28/2018 Time Performed: 16:10:42 PTAGE: 78 years EKG: Sinus rhythm WITH FIRST DEGREE AV BLOCK RIGHT BUNDLE BRANCH BLOCK LEFT ANTERIOR FASCICULAR BLOCK LOW VOLTAGE THRO UGHOUT ABNORMAL ECG NO PREVIOUS TRACING DOCTOR: Osei Calle Interpretating Date/Time 11/29/2018 11:49:37
--- NOTE | 2018-11-29 15:18 | P.PNIM ---
Subjective Interval history: Follow-up visit diarrhea, hypoglycemia, syncope Patient is resting in bed. He reports diarrhea over the past several days. 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 Yesterday while at dialysis he had an episode of syncope while sitting in his chair. Patient denies chest pain, shortness of breath, palpitations, dizziness or feeling lightheaded at present time. RN notes that patients blood sugars have been dropping despite patient consuming food and orange juice. Physical Exam Vital signs: Vital Signs 11/28/18 15:46 11/28/18 15:57 11/28/18 17:24 Temperature Pulse Rate 87 77 76 Respiratory Rate 16 18 Blood Pressure 110/53 L Pulse Oximetry 98 98 11/28/18 18:14 11/28/18 19:03 11/28/18 21:18 Temperature 98.3 F Pulse Rate 75 75 75 Respiratory Rate 18 18 12 Blood Pressure 117/58 L 115/58 L 95/53 L Pulse Oximetry 100 95 96 11/28/18 23:00 11/29/18 00:00 11/29/18 03:15 Temperature 98.4 F 98 F Pulse Rate 79 73 68 Respiratory Rate 15 16 Blood Pressure 107/51 L 122/58 L Pulse Oximetry 98 11/29/18 07:45 Temperature 98.1 F Pulse Rate 62 Respiratory Rate 16 Blood Pressure 102/50 L Pulse Oximetry 100 Intake & Output 11/28/18 11/29/18 11/29/18 18:59 06:59 18:59 Intake Total 1000 / 1000 480 / 480 Balance 1000 / 1000 480 / 480 Weight 90.718 kg 90.718 kg Intake: IV 1000 / 1000 NS Inj 1,000 ML @ Wide Open IV. 1000 / 1000 SIG BOLUS ONE Rx#:[id number] Oral 480 / 480 Other: # Voids 0 Date of Last Bowel Movement 11/28/18 # Bowel Movements 1 Weight On Admission 90.718 kg Narrative: Gen.: No acute distress Head: Normocephalic. Atraumatic. EENT: Pupils equal round and reactive to light. Nose without drainage. Airway intact. Throat without injection. Cardiovascular: Regular rate and rhythm. No murmurs, rubs or gallops. Respiratory: Lungs clear to auscultation bilaterally. No wheezes or rhonchi. Abdomen: Soft, nontender, nondistended. No peritoneal signs. Musculoskeletal: No gross deformities. No edema. Skin: No obvious rashes or erythema. Neuro: Sensory and motor grossly intact. Cranial nerves II through XII grossly intact. Results Labs CBC & Chem 7: 11/29/18 08:09 11/29/18 08:09 Labs: Microbiology 11/28/18 22:45 Stool Cryptosporidium Antigen - Final Negative - No Cryptosporicium antigen detected In selected cases of patients with a history of immunosuppression or foreign travel, a full ova and parasites examination may be desired. Contact the microbiology lab if full workup is indicated and subit another specimen for testing. 11/28/18 22:45 Stool Giardia Antigen (SHARAD) - Final Negative - No Giardia Antigen detected In selected cases of patients with a history of immunosuppression or foreign travel, a full ova and parasites examination may be desired. Contact the microbiology lab if full workup is indicated and subit another specimen for testing. 11/28/18 18:38 Clean Catch Urine Urine Culture - Preliminary No growth in 24 hours 11/28/18 22:45 Stool Stool for WBCs - Final No WBC's seen 11/28/18 22:45 Stool Enteric Pathogens (PCR) - Final No enteric pathogens detected by PCR (No Salmonella sp., Shigella sp., Campylobacter sp., Yersinia enterocolitica, Vibrio sp., Norovirus, or EHEC (Shiga Toxin 1 or Shiga Toxin 2) detected. Imaging Imaging: Impressions Carotid Doppler Study 11/28/18 00:00 CONCLUSION: No hemodynamically significant stenosis involving either carotid artery. Antegrade flow involving both vertebral arteries. Chest X-Ray 11/28/18 16:33 CONCLUSION: Dialysis catheter in good position. Lungs are clear Head CT 11/28/18 16:33 CONCLUSION: 1. No acute intracranial abnormality. . Assessment and Plan (1) End-stage renal disease on hemodialysis: Code(s): N18.6 - End stage renal disease; Z99.2 - Dependence on renal dialysis Status: Acute (2) C. difficile diarrhea: Code(s): A04.72 - Enterocolitis due to Clostridium difficile, not specified as recurrent Status: Acute (3) Syncope: Code(s): R55 - Syncope and collapse Status: Acute (4) Diabetes: Code(s): E11.9 - Type 2 diabetes mellitus without complications Status: Acute Plan 78-year-old male with a past medical history significant for end-stage renal disease on dialysis, diabetes mellitus, hypotension, and hyperlipidemia presents to the emergency department for evaluation of a syncopal episode that occurred while at his dialysis center. Syncope -Head CT negative for acute process -Orthostatic vital signs pending, patient with history of hypotension Carotid ultrasound, echo pending Diarrhea/history of C. difficile C. difficile -pt w/ hx of c-diff and fecal transplant -patient recently discharged from [facility] was treated with antibiotics for MRSA -PO Vanc -consult ID Hypokalemia -K 2.9 -discussed with Nephrology, ok to administer 40 meq PO Diabetes mellitus with episodes of hypoglycemia -blood sugars 48-89 today -hold home Lantus -accuchecks Q2 hours -ADA diet End-stage renal disease on dialysis -Nephrology consulted and following -pt to have dialysis on his regularly scheduled days Mo, We, Fr Anemia, likely secondary due to chronic disease -H/H stable -no e/o bleeding MDM: self Code: Full GI ppx: not indicated DVT ppx: SCD's Discussed with: RN, patient, supervising MD Dispo: Home with vs SNF pending clinical course Progress Note: Quality VTE Deep Vein Thrombosis/Pulmonary Embolism Present on Admission: No _ (1) Syncope Qualifiers: Encounter type: Syncope type: unspecified Qualified Code(s): R55 - Syncope and collapse (2) Diabetes Qualifiers: Diabetes mellitus type: Diabetes mellitus snf insulin use: Diabetes mellitus complication status: Diabetes mellitus complication detail: Diabetic retinopathy severity: Proliferative retinopathy type: Diabetes mellitus macular edema: Laterality: Chronic kidney disease stage:
--- NOTE | 2018-11-29 16:58 | ECHRPT ---
Indication: SYNCOPE CONCLUSIONS Normal left ventricular size. Wall thickness is normal. The left ventricular systolic function is normal with an estimated ejection fraction in the range of 55-60%. Mitral annular calcification is present. Aortic valve sclerosis is present. There is trace tricuspid valve regurgitation. The estimated pulmonary arterial pressure is 18 mmHg. BP: / HR: Rhythm: MEASUREMENTS (Male / Female) Normal Values Technical Quality: 2D ECHO LV Diastolic Diameter PLAX 4.8 cm 4.2 - 5.9 / 3.9 - 5.3 cm LV Systolic Diameter PLAX 3.8 cm IVS Diastolic Thickness 1.1 cm 0.6 - 1.0 / 0.6 - 0.9 cm LVPW Diastolic Thickness 0.9 cm 0.6 - 1.0 / 0.6 - 0.9 cm LV Relative Wall Thickness 0.4 RV Internal Dim ED PLAX 3.9 cm LVOT Diameter 2.1 cm Aortic Root Diameter 3.6 cm LA Systolic Diameter LX 2.9 cm 3.0 - 4.0 / 2.7 - 3.8 cm M-MODE AV Cusp Separation MM 1.6 cm DOPPLER AV Peak Velocity 162.0 cm/s AV Peak Gradient 10.5 mmHg LVOT Peak Velocity 109.0 cm/s LVOT Peak Gradient 4.8 mmHg AV Area Cont Eq pk 2.3 cm Mitral E Point Velocity 84.4 cm/s Mitral A Point Velocity 82.9 cm/s Mitral E to A Ratio 1.0 LV E' Lateral Velocity 9.9 cm/s Mitral E to LV E' Lateral Ratio 8.5 TR Peak Velocity 137.0 cm/s TR Peak Gradient 7.5 mmHg Right Atrial Pressure 10.0 mmHg Pulmonary Artery Systolic Pressu 17.5 mmHg Right Ventricular Systolic Press 17.5 mmHg FINDINGS LEFT VENTRICLE Normal left ventricular size. Wall thickness is normal. The left ventricular systolic function is normal with an estimated ejection fraction in the range of 55-60%. RIGHT VENTRICLE Normal right ventricular size and systolic function. LEFT ATRIUM The left atrial size is normal. RIGHT ATRIUM The right atrial size is normal. ATRIAL SEPTUM Normal atrial septal thickness without atrial level shunting by limited color doppler interrogation. AORTA The aortic root and proximal ascending aorta are normal in size on limited imaging. MITRAL VALVE Mitral annular calcification is present. AORTIC VALVE Aortic valve sclerosis is present. TRICUSPID VALVE There is trace tricuspid valve regurgitation. The estimated pulmonary arterial pressure is 18 mmHg. PULMONARY VALVE No pulmonary valve regurgitation or stenosis. VESSELS The inferior vena cava is normal in size. PERICARDIUM No pericardial effusion. Nikita Hernandez MD, FACC (Electronically Signed) Final Date:29 November 2018 16:57
[2018-11-30] MEDS: Insulin NovoLOG Aspart Correctional Sugar Inj SQ SCH ×5 (03:10→21:56)
[2018-11-30 09:07] LABS: Baso % (Auto) 0.6 % (0.0-2.0); Eos # (Auto) 0.3 th/mm3 (0.0-0.4); Eos % (Auto) 5.2 % (0.0-4.0); Hematocrit 28.5 % (39.0-51.0); Hemoglobin 9.5 gm/dL (13.0-17.0); Lymph # (Auto) 4.3 th/mm3 (1.0-4.8); Lymph % (Auto) 68.1 % (9.0-44.0); Mean Corpuscular HGB Conc 33.4 % (32.0-36.0); Mean Corpuscular Hemoglobin 31.9 pg (27.0-34.0); Mean Corpuscular Volume 95.6 fL (80.0-100.0); Mean Platelet Volume 8.2 fL (7.0-11.0); Mono # (Auto) 0.1 th/mm3 (0.0-0.9); Mono % (Auto) 2.1 % (0.0-8.0); Neut # (Auto) 1.5 th/mm3 (1.8-7.7); Platelet Count 232 th/mm3 (150-450); Red Blood Count 2.98 mil/mm3 (4.50-5.90); White Blood Count 6.4 th/mm3 (4.0-11.0)
[2018-11-30 09:36] LABS: Carbon Dioxide 26.8 meq/L (21.0-32.0); Potassium 3.6 meq/L (3.5-5.1)
--- NOTE | 2018-11-30 09:46 | P.PNNP ---
Subjective Interval history: Seen during hemodialysis, tolerating well. Resting comfortably. No shortness of breath, chest pain, nausea, or vomiting. <Karin Shirley - Last Filed: 11/30/18 09:41> Physical Exam Vital signs: Vital Signs 11/29/18 17:07 11/29/18 20:00 11/29/18 23:47 Temperature 98.3 F 98.6 F 97.8 F Pulse Rate 70 72 64 Respiratory Rate 18 16 16 Blood Pressure 124/73 123/57 L 127/60 Pulse Oximetry 98 96 97 11/30/18 01:00 11/30/18 04:00 Temperature 98.5 F Pulse Rate 64 70 Respiratory Rate 18 Blood Pressure 143/68 H Pulse Oximetry 98 Intake & Output 11/29/18 11/30/18 11/30/18 18:59 06:59 18:59 Intake Total 500 / 500 480 / 480 Output Total 0 / 0 Balance 500 / 500 480 / 480 Intake: Oral 500 / 500 480 / 480 Output: Urine 0 / 0 Other: Date of Last Bowel Movement 11/29/18 # Bowel Movements 1 Narrative: GENERAL: Alert and oriented. SKIN: Warm and dry. Drg on right arm and right lower extremity NECK: Supple, trachea midline. No JVD CARDIOVASCULAR: Regular rate and rhythm without murmurs, gallops, or rubs. Right chest wall Permacath. RESPIRATORY: Breath sounds equal bilaterally. No accessory muscle use. GASTROINTESTINAL: Abdomen soft, non-tender, nondistended. +BS. MUSCULOSKELETAL: No cyanosis, Left BKA. Right lower extremity with mild edema. BACK: Nontender without obvious deformity. No CVA tenderness. <Karin Shirley - Last Filed: 11/30/18 09:41> Vital signs: Vital Signs 11/29/18 23:47 11/30/18 01:00 11/30/18 04:00 Temperature 97.8 F 98.5 F Pulse Rate 64 64 70 Respiratory Rate 16 18 Blood Pressure 127/60 143/68 H Pulse Oximetry 97 98 11/30/18 16:00 11/30/18 19:23 11/30/18 21:42 Temperature 98.2 F 98.1 F Pulse Rate 69 78 67 Respiratory Rate 16 20 18 Blood Pressure 113/53 L 109/58 L 117/59 L Pulse Oximetry 95 95 95 Intake & Output 11/30/18 11/30/18 12/01/18 06:59 18:59 06:59 Intake Total 480 / 480 Output Total 0 / 0 1200 / 1200 Balance 480 / 480 -1200 / -1200 Intake: Oral 480 / 480 Output: Urine 0 / 0 200 / 200 Hemodialysis Amount 1000 / 1000 Other: Date of Last Bowel Movement 11/29/18 11/29/18 # Bowel Movements 1 <Mayco Sawyer - Last Filed: 11/30/18 23:00> Assessment and Plan - Assessment (1) End-stage renal disease on hemodialysis Code(s): N18.6 - End stage renal disease; Z99.2 - Dependence on renal dialysis Status: Acute Plan: End stage renal disease on HD on Monday, Monday, Monday Right chest wall permacath followed by Dr. Braun outpatient Has AVF in right arm not functioning. Epogen with dialysis Continue florinef and midodrine for hypotension Seen during hemodialysis, 3K bath, plan to remove 1.3 liters (2) C. difficile diarrhea Code(s): A04.72 - Enterocolitis due to Clostridium difficile, not specified as recurrent Status: Acute Plan: HX of C difficile and recent antibiotics. Now positive again. On probiotics and oral vancomycin. (3) Syncope Code(s): R55 - Syncope and collapse Status: Acute Qualifiers: Syncope type: unspecified Qualified Code(s): R55 - Syncope and collapse Plan: Head CT negative, work up underway. (4) Diabetes Code(s): E11.9 - Type 2 diabetes mellitus without complications Status: Acute Plan: Maintain blood sugar between 140 mg/dl to 180 mg/dl while hospitalized. On insulin. Better controlled today. <Karin Shirley - Last Filed: 11/30/18 09:41> - Assessment (1) End-stage renal disease on hemodialysis Code(s): N18.6 - End stage renal disease; Z99.2 - Dependence on renal dialysis Status: Acute Plan: Patient seen during HD, and examined, agree with above. BP has been on lower side. On Midodrine, and Florinef. He has been following with Dr. Braun. (2) C. difficile diarrhea Code(s): A04.72 - Enterocolitis due to Clostridium difficile, not specified as recurrent Status: Acute (3) Syncope Code(s): R55 - Syncope and collapse Status: Acute Qualifiers: Syncope type: unspecified Qualified Code(s): R55 - Syncope and collapse (4) Diabetes Code(s): E11.9 - Type 2 diabetes mellitus without complications Status: Acute <Mayco Sawyer - Last Filed: 11/30/18 23:00>
[2018-11-30] MEDS ORDERED: Sod Chloride 0.9% Inj 1,000 ML IV.CONT PRN (10:58)
[2018-11-30] MEDS ORDERED: Acetaminophen 325 MG Tablet PO PRN (10:58)
[2018-11-30] MEDS ORDERED: Heparin 10,000 UNITS/10 ML Vial (for IV use) OTHER PRN ×2 (10:58)
[2018-11-30] MEDS ORDERED: Albumin Human 25% Inj 100 ML IV.SIG PRN (10:58)
[2018-11-30] MEDS ORDERED: Sod Chloride 0.9% Inj 1,000 ML OTHER PRN ×2 (10:58)
[2018-11-30] MEDS ORDERED: Gelatin 12 MM/7 MM Topical Foam TOPICAL PRN (10:58)
[2018-11-30 11:04] LABS: Eosinophils 5 % (0-4); Monocytes 2 % (0-8)
[2018-11-30 11:06] LABS: Lymphocytes 75 % (9-44); Smudge Cells Present
[2018-11-30 11:07] LABS: Platelet Estimate Normal (Normal); Platelet Morphology Normal (Normal); RBC Morphology Normal (Normal)
[2018-11-30] MEDS: Amiodarone 200 MG Tablet PO SCH (12:48)
[2018-11-30] MEDS: Heparin - SQ 10,000 UNITS/ML Vial SQ SCH ×2 (12:49→21:56)
[2018-11-30] MEDS: Lactobacillus Acidophilus/L. Spores Tablet PO SCH (12:49)
--- NOTE | 2018-11-30 15:02 | P.CONID ---
History of Present Illness Service: Infectious disease Consult date: 11/30/18 Requesting Physician: Princess Carrillo Reason for Consult: Evaluation of C. difficile in a patient with fecal transplant Primary Care Provider: UNKNOWN History of Present Illness: Mr. 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 Manjeet Posada as outpatient. Patient's daughter provided the history and she reports that after transplantation he did fairly okay until recently when in August 2018 he was admitted at [facility] for hemodialysis catheter infection. She goes on to report that for the hemodialysis catheter he received IV antibiotics and his catheter was changed and she thinks that the antibiotics were stopped in October 2018. Details of the stop date not known. She then goes on to report that he was in a rehab center where he may have developed diarrhea and started on vancomycin oral again. Patient was discharged from rehab approximately 2 weeks prior to this admission and has been undergoing hemodialysis Monday at the hemodialysis center. Patient's daughter reports that he was at hemodialysis on November 28, 2017 and 10 minutes into the hemodialysis session patient had hypotension and his hemodialysis session was stopped. He thereafter his vitals improved and so he was discharged home as patient reportedly refused transportation to the ED. Patient then became dizzy and lightheaded and fell to the ground while in the bathroom. EMS was called and patient was noted to be hypotensive and had blacked out. He has a 3-day history of watery, explosive diarrhea that is foul-smelling. He denies any chest pain or shortness of breath. Intermittent crampy abdominal pain. No focal neurologic deficits. No fever/chills. Infectious diseases consulted for evaluation and management of C. difficile positive diarrhea in a patient status post fecal transplantation. Review of Systems All other systems reviewed negative except as stated in HPI PMFSH - History History Provided By: Patient - Medical History Medical History: Medical History (Last Reviewed 11/28/18 @ 20:30 by Valeria Kern MD) [place] (hard of hearing) Hypotension C. difficile colitis Diabetes mellitus ESRD (end stage renal disease) on dialysis History of left above knee amputation - Surgical History Surgical History: Surgical History (Last Updated 11/28/18 @ 20:31 by Valeria Kern MD) Status post unilateral below knee amputation - Family History Family History: Family History Other Family history unknown - Tobacco History Second Hand Smoke Exposure: No Smoking Status: Never smoker - Alcohol History How Often Do You Have a Drink Containing Alcohol: Never - Substance Use History Substance History: No History of Abuse - Travel History Recent Travel in the [place] Within the Last 8 Weeks: No Recent Travel Out of the Country Within the Last 8 Weeks: No - Immunization History Tetanus Immunization: >5 Years Medications and Allergies Active Medications: Active Medications Acetaminophen (Tylenol) 650 mg PO UNSCH PRN PRN Reason: SEE LABEL COMMENTS Amiodarone HCl (Cordarone) 200 mg PO DAILY [facility] Last Admin: 11/30/18 12:48 Dose: 200 mg Aspirin (Ecotrin) 81 mg PO DAILY [facility] Last Admin: 11/30/18 12:48 Dose: 81 mg Atorvastatin Calcium (Lipitor) 10 mg PO QPM [facility] Last Admin: 11/29/18 17:42 Dose: 10 mg Clonidine HCl (Catapres) 0.1 mg PO UNSCH PRN PRN Reason: SEE LABEL COMMENTS Dextrose (D50w Vial) 50 ml IV.PUSH UNSCH PRN PRN Reason: PER HYPOGLYCEMIA PROTOCOL Diphenhydramine HCl (Benadryl) 25 mg PO UNSCH PRN PRN Reason: SEE LABEL COMMENTS Epoetin Jung (Epogen Inj) 6,000 unit IV.PUSH UNSCH PRN PRN Reason: SEE LABEL COMMENTS Fludrocortisone Acetate (Florinef) 0.2 mg PO DAILY [facility] Last Admin: 11/30/18 12:48 Dose: 0.2 mg Gelatin (Gelfoam 12 Mm/7 Mm Topical) 1 foam TOPICAL PRN PRN PRN Reason: help stop bleeding from site Gentamicin Sulfate (Gentamicin Inj) 20 mg OTHER WITH DIALYSIS PRN PRN Reason: Dwell Gentamycin Lock Glucagon (Glucagon Inj) 1 mg OTHER PRN PRN PRN Reason: for Hypoglycemia Protocol Heparin Sodium (Porcine) (Heparin Inj) 5,000 units SQ Q12HR [facility] Last Admin: 11/30/18 12:49 Dose: 5,000 units Heparin Sodium (Porcine) (Heparin Inj) 8,000 units OTHER WITH DIALYSIS PRN PRN Reason: for machine prime Heparin Sodium (Porcine) (Heparin Inj) 1,000 units OTHER WITH DIALYSIS PRN PRN Reason: Dwell Heparin to Fill Catheter Albumin Human (Flexbumin 25% Inj) 100 mls @ 60 mls/hr IV.SIG WITH DIALYSIS PRN PRN Reason: hypotension / volume replace Sodium Chloride (Ns Inj) 1,000 mls @ 0 mls/hr OTHER .Q0M PRN PRN Reason: for prime and rinse back Sodium Chloride (Ns Inj) 1,000 mls @ 200 mls/hr OTHER .Q5H PRN PRN Reason: for dialyzer flush PRN Sodium Chloride (Ns Inj) 1,000 mls @ 0 mls/hr IV.CONT .Q0M PRN PRN Reason: hypotension / volume replace Insulin Aspart (Novolog Insulin Correctional Sugar Inj) 0 unit SQ ACHS AND 3AM JUSTO; Protocol Last Admin: 11/30/18 12:54 Dose: Not Given Insulin Detemir (Levemir Inj) 15 unit SQ HS [facility] Last Admin: 11/28/18 22:22 Dose: 15 unit Lactobacillus Acidophilus (Lactinex) 1 tab PO DAILY [facility] Last Admin: 11/30/18 12:49 Dose: 1 tab Mannitol (Mannitol Inj) 12.5 gm IV.PUSH UNSCH PRN PRN Reason: hypotension / volume replace Midodrine (Proamatine) 10 mg PO BID [facility] Last Admin: 11/30/18 12:50 Dose: 10 mg Nitroglycerin (Nitrostat Sl) 0.4 mg SL Q5M PRN PRN Reason: CHEST PAIN Ondansetron HCl (Zofran Inj) 4 mg IV.PUSH UNSCH PRN PRN Reason: NAUSEA OR VOMITING Sodium Chloride (Ns Flush) 5 ml IV.FLUSH PRN PRN PRN Reason: flush each lumen during HD Vancomycin HCl (Vancomycin Po) 125 mg PO QID [facility] Last Admin: 11/30/18 12:54 Dose: 125 mg Allergies Allergy/AdvReac Type Severity Reaction Status Date / Time No Known Allergies Allergy Verified 11/28/18 15:57 Home Medications Medication Instructions Recorded Confirmed Type acidophilus-sporogenes 1 tab PO DAILY 11/28/18 11/28/18 History amiodarone 200 mg PO DAILY 11/28/18 11/28/18 History aspirin [Aspir-81] 81 mg PO DAILY 11/28/18 11/28/18 History atorvastatin 10 mg PO QPM 11/28/18 11/28/18 History famotidine 20 mg PO DAILY 11/28/18 11/28/18 History fludrocortisone 0.2 mg PO DAILY 11/28/18 11/28/18 History fluticasone 1 inh INHALATION Q12H 11/28/18 11/28/18 History insulin glargine 15 unit SUBCUT HS 11/28/18 11/28/18 History midodrine 10 mg PO BID 11/28/18 11/28/18 History vitamin B complex-folic acid 1 tab PO DAILY 11/28/18 11/28/18 History Exam Vital signs: Vital Signs 11/29/18 17:07 11/29/18 20:00 11/29/18 23:47 Temperature 98.3 F 98.6 F 97.8 F Pulse Rate 70 72 64 Respiratory Rate 18 16 16 Blood Pressure 124/73 123/57 L 127/60 Pulse Oximetry 98 96 97 11/30/18 01:00 11/30/18 04:00 Temperature 98.5 F Pulse Rate 64 70 Respiratory Rate 18 Blood Pressure 143/68 H Pulse Oximetry 98 Intake & Output 11/29/18 11/30/18 11/30/18 18:59 06:59 18:59 Intake Total 500 / 500 480 / 480 Output Total 0 / 0 1000 / 1000 Balance 500 / 500 480 / 480 -1000 / -1000 Intake: Oral 500 / 500 480 / 480 Output: Urine 0 / 0 Hemodialysis Amount 1000 / 1000 Other: Date of Last Bowel Movement 11/29/18 11/29/18 # Bowel Movements 1 Narrative: GENERAL: Well-nourished well-developed, not in acute distress SKIN: Cool and dry, no generalized rash HEAD: Atraumatic. Normocephalic. No temporal or scalp tenderness. EYES: Pupils equal round and reactive. Scleral icterus. No injection or drainage. No petechia ENT: Nothing abnormal detected NECK: Trachea midline. Supple, nontender, no meningeal signs. CARDIOVASCULAR: HS audible. RESPIRATORY: Clear to auscultation bilaterally. GASTROINTESTINAL: Abdomen soft diffuse mild tenderness noted, most pronounced in the bilateral lower quadrants. MUSCULOSKELETAL: Extremities without clubbing, cyanosis. NEUROLOGICAL: Alert oriented 3. Nonfocal. Psych cooperative IV line sites ok. Results - Labs CBC & Chem 7: 11/30/18 08:25 11/30/18 08:25 Labs: Laboratory Results - last 24 hr 11/29/18 11/29/18 11/29/18 14:09 17:02 21:09 WBC RBC Hgb Hct MCV MCH MCHC RDW Plt Count MPV Prelim Diff (Auto) Neut % (Auto) Lymph % (Auto) [place] % (Auto) Eos % (Auto) Baso % (Auto) Neut # (Auto) Lymph # (Auto) [place] # (Auto) Eos # (Auto) Baso # (Auto) WBC Differential Seg Neuts % (Manual) Band Neuts % (Manual) Lymphocytes % (Manual) Monocytes % (Manual) Eosinophils % (Manual) Abs Neuts (Manual) Differential Comment Smudge Cells Platelet Estimate Platelet Morphology RBC Morphology Sodium Potassium Chloride Carbon Dioxide Anion Gap BUN Creatinine Estimated GFR POC Glucose 99 142 H Random Glucose 81 Calcium 11/29/18 11/30/18 11/30/18 23:01 03:09 05:44 WBC RBC Hgb Hct MCV MCH MCHC RDW Plt Count MPV Prelim Diff (Auto) Neut % (Auto) Lymph % (Auto) [place] % (Auto) Eos % (Auto) Baso % (Auto) Neut # (Auto) Lymph # (Auto) [place] # (Auto) Eos # (Auto) Baso # (Auto) WBC Differential Seg Neuts % (Manual) Band Neuts % (Manual) Lymphocytes % (Manual) Monocytes % (Manual) Eosinophils % (Manual) Abs Neuts (Manual) Differential Comment Smudge Cells Platelet Estimate Platelet Morphology RBC Morphology Sodium Potassium Chloride Carbon Dioxide Anion Gap BUN Creatinine Estimated GFR POC Glucose 107 105 102 Random Glucose Calcium 11/30/18 11/30/18 11/30/18 07:58 08:25 08:25 WBC 6.4 RBC 2.98 L Hgb 9.5 L Hct 28.5 L MCV 95.6 MCH 31.9 MCHC 33.4 RDW 17.0 Plt Count 232 MPV 8.2 Prelim Diff (Auto) Slide review pending Neut % (Auto) 24.0 Lymph % (Auto) 68.1 H Chester % (Auto) 2.1 Eos % (Auto) 5.2 H Baso % (Auto) 0.6 Neut # (Auto) 1.5 L Lymph # (Auto) 4.3 Chester # (Auto) 0.1 Eos # (Auto) 0.3 Baso # (Auto) 0.0 WBC Differential Manual diff final Seg Neuts % (Manual) 14 L Band Neuts % (Manual) 4 Lymphocytes % (Manual) 75 H Monocytes % (Manual) 2 Eosinophils % (Manual) 5 H Abs Neuts (Manual) 1.2 L Differential Comment . Smudge Cells Present H Platelet Estimate Normal Platelet Morphology Normal RBC Morphology Normal Sodium 143 Potassium 3.6 Chloride 110 H Carbon Dioxide 26.8 Anion Gap 6 BUN 25 H Creatinine 4.42 H Estimated GFR 13 L POC Glucose 96 Random Glucose 87 Calcium 8.0 L 11/30/18 11/30/18 11/30/18 09:26 10:48 12:40 WBC RBC Hgb Hct MCV MCH MCHC RDW Plt Count MPV Prelim Diff (Auto) Neut % (Auto) Lymph % (Auto) Chester % (Auto) Eos % (Auto) Baso % (Auto) Neut # (Auto) Lymph # (Auto) [place] # (Auto) Eos # (Auto) Baso # (Auto) WBC Differential Seg Neuts % (Manual) Band Neuts % (Manual) Lymphocytes % (Manual) Monocytes % (Manual) Eosinophils % (Manual) Abs Neuts (Manual) Differential Comment Smudge Cells Platelet Estimate Platelet Morphology RBC Morphology Sodium Potassium Chloride Carbon Dioxide Anion Gap BUN Creatinine Estimated GFR POC Glucose 90 82 138 H Random Glucose Calcium - Imaging Carotid Doppler Study 11/28/18 00:00 CONCLUSION: No hemodynamically significant stenosis involving either carotid artery. Antegrade flow involving both vertebral arteries. Chest X-Ray 11/28/18 16:33 CONCLUSION: Dialysis catheter in good position. Lungs are clear Head CT 11/28/18 16:33 CONCLUSION: 1. No acute intracranial abnormality. . Assessment and Plan - Plan Hypotension on admission rule out sepsis C. 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 Status post left BKA amputation Recommendations: Continue oral vancomycin Get blood cultures from HD catheter as well as from periphery. Recent history of hemodialysis catheter infection rule out recurrent bacteremia Check lactic acid Check 2D echo in view of hypotension and bacteremia rule out endocarditis Follow cultures Follow clinical course Request medical records from [facility] from August to current. Meets criteria for inpatient admission further workup needed
[2018-11-30 17:00] LABS: Hepatitis A IgM Antibody Nonreactive (Nonreactive); Hepatitits B Surface Antigen Nonreactive (Nonreactive)
--- NOTE | 2018-11-30 17:59 | P.PNIM ---
Subjective Interval history: Follow-up visit diarrhea, hypoglycemia, syncope Patient seen and examined status post hemodialysis. He reports 2 episodes of diarrhea today. He was recently treated with antibiotics at [facility] for a urinary tract infection according to family member. Patient reports mild left lower quadrant tenderness. No nausea or vomiting. Physical Exam Vital signs: Vital Signs 11/29/18 20:00 11/29/18 23:47 11/30/18 01:00 Temperature 98.6 F 97.8 F Pulse Rate 72 64 64 Respiratory Rate 16 16 Blood Pressure 123/57 L 127/60 Pulse Oximetry 96 97 11/30/18 04:00 Temperature 98.5 F Pulse Rate 70 Respiratory Rate 18 Blood Pressure 143/68 H Pulse Oximetry 98 Intake & Output 11/29/18 11/30/18 11/30/18 18:59 06:59 18:59 Intake Total 500 / 500 480 / 480 Output Total 0 / 0 1000 / 1000 Balance 500 / 500 480 / 480 -1000 / -1000 Intake: Oral 500 / 500 480 / 480 Output: Urine 0 / 0 Hemodialysis Amount 1000 / 1000 Other: Date of Last Bowel Movement 11/29/18 11/29/18 # Bowel Movements 1 Narrative: Gen.: No acute distress Head: Normocephalic. Atraumatic. EENT: Pupils equal round and reactive to light. Nose without drainage. Airway intact. Throat without injection. Cardiovascular: Regular rate and rhythm. No murmurs, rubs or gallops. Respiratory: Lungs clear to auscultation bilaterally. No wheezes or rhonchi. Abdomen: Soft, nontender, nondistended. No peritoneal signs. Musculoskeletal: No gross deformities. No edema. Skin: No obvious rashes or erythema. Neuro: Sensory and motor grossly intact. Cranial nerves II through XII grossly intact. Results Labs CBC & Chem 7: 11/30/18 08:25 11/30/18 08:25 Labs: Microbiology 11/28/18 18:38 Clean Catch Urine Urine Culture - Final No growth in 48 hours 11/28/18 22:45 Stool Cryptosporidium Antigen - Final Negative - No Cryptosporicium antigen detected In selected cases of patients with a history of immunosuppression or foreign travel, a full ova and parasites examination may be desired. Contact the microbiology lab if full workup is indicated and subit another specimen for testing. 11/28/18 22:45 Stool Giardia Antigen (SHARAD) - Final Negative - No Giardia Antigen detected In selected cases of patients with a history of immunosuppression or foreign travel, a full ova and parasites examination may be desired. Contact the microbiology lab if full workup is indicated and subit another specimen for testing. Assessment and Plan Plan 78-year-old male with a past medical history significant for end-stage renal disease on dialysis, diabetes mellitus, hypotension, and hyperlipidemia presents to the emergency department for evaluation of a syncopal episode that occurred while at his dialysis center. Syncope -Head CT negative for acute process -Orthostatic vital signs pending, patient with history of hypotension Carotid ultrasound, echo pending Diarrhea/history of C. difficile C. difficile -pt w/ hx of c-diff and fecal transplant -patient recently discharged from [facility] was treated with antibiotics for MRSA -PO Vanc -consult ID Hypotension -may have been secondary to fluid removal during dialysis -improved -lactic acid 1.4 -blood cultures pending Hypokalemia -replaced and resolved Diabetes mellitus with episodes of hypoglycemia -blood sugars improved -hold home Lantus -accuchecks Q2 hours -ADA diet End-stage renal disease on dialysis -Nephrology consulted and following -pt to have dialysis on his regularly scheduled days Mo, We, Fr Anemia, likely secondary due to chronic disease -H/H stable -no e/o bleeding MDM: self Code: Full GI ppx: not indicated DVT ppx: SCD's Discussed with: RN, patient, supervising MD Dispo: Home with vs SNF pending clinical course Progress Note: Quality VTE Deep Vein Thrombosis/Pulmonary Embolism Present on Admission: No
[2018-12-01] MEDS: Insulin NovoLOG Aspart Correctional Sugar Inj SQ SCH ×5 (02:54→22:11)
--- NOTE | 2018-12-01 09:46 | P.PNIM ---
Subjective Interval history: Patient feels better this morning. No dizziness or lightheadedness. Still has diarrhea, not clear how much presently. Physical Exam Vital signs: Vital Signs 11/30/18 16:00 11/30/18 19:23 11/30/18 21:42 Temperature 98.2 F 98.1 F Pulse Rate 69 78 67 Respiratory Rate 16 20 18 Blood Pressure 113/53 L 109/58 L 117/59 L Pulse Oximetry 95 95 95 11/30/18 22:00 12/01/18 00:00 12/01/18 01:00 Temperature 97.4 F L Pulse Rate 67 65 Respiratory Rate 18 Blood Pressure 115/56 L Pulse Oximetry 95 96 12/01/18 03:48 12/01/18 04:00 Temperature 97.5 F L Pulse Rate 68 66 Respiratory Rate 18 Blood Pressure 115/61 Pulse Oximetry 94 L Intake & Output 11/30/18 12/01/18 12/01/18 18:59 06:59 18:59 Output Total 1200 / 1200 Balance -1200 / -1200 Weight 78 kg Output: Urine 200 / 200 Hemodialysis Amount 1000 / 1000 Other: # Incontinent Voids 3 Date of Last Bowel Movement 11/29/18 12/01/18 # Bowel Movements 1 # Incontinent Bowel Movements 3 Narrative: GENERAL: elderly man, not in distress, laying on bed. HEENT:not pale,anicteric, moist mucous membranes. Forehead lesion noted. CARDIOVASCULAR: RRR,s1s2 normal, without murmurs, gallops, or rubs. RESPIRATORY: Clear to auscultation. Breath sounds equal bilaterally. No wheezes , rales, or rhonchi. GASTROINTESTINAL: Abdomen soft, non-tender, nondistended. 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 Rt forearm dressing. NEURO: Alert & Oriented x4 to person, place, time, situation. Moves all ext x4 Results Labs CBC & Chem 7: 11/30/18 08:25 11/30/18 08:25 Labs: Microbiology 11/28/18 18:38 Clean Catch Urine Urine Culture - Final No growth in 48 hours Assessment and Plan Plan 78 yo M with h/o ESRD on HD MWF schedule, DM type 2, C.diff s/p fecal transplant presented with a syncopal episode. 1.Syncope: etiology in this patient is likely volume depletion in the setting of ongoing diarrhea. Hypotensive episode during HD likely related to volume depletion. CT head,ECHO unremarkable. Unclear why carotid doppler was done, but was negative as well. -patient has h/o hypotension and is on Midodrine/Fludrocortisone. -check orthostatic vitals. -encourage PO fluid intake. 2. 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 Cont PO Vanc and Fidaxomicin. ID following. 3. DM type 2- had hypoglycemia to 48 2 days ago. Insulin on hold. check A1C. Avoid tight glucose control in this patient given his comorbidities. 4.ESRD on HD-cont as per renal schedule. 5.Anemia of ESRD-receiving EPO during HD 6.Hypocalcemia-check vit D level. DVT ppx with heparin. Progress Note: Quality VTE Deep Vein Thrombosis/Pulmonary Embolism Present on Admission: No
[2018-12-01] MEDS: Amiodarone 200 MG Tablet PO SCH (10:09)
[2018-12-01] MEDS: Lactobacillus Acidophilus/L. Spores Tablet PO SCH (10:09)
[2018-12-01] MEDS: Heparin - SQ 10,000 UNITS/ML Vial SQ SCH ×2 (10:09→22:11)
[2018-12-01 15:13] LABS: Carbon Dioxide 29.8 meq/L (21.0-32.0); Potassium 3.8 meq/L (3.5-5.1)
--- NOTE | 2018-12-01 21:52 | P.PNNP ---
Subjective Interval history: Patient seen in the afternoon, clinically same. Physical Exam Vital signs: Vital Signs 11/30/18 22:00 12/01/18 00:00 12/01/18 01:00 Temperature 97.4 F L Pulse Rate 67 65 Respiratory Rate 18 Blood Pressure 115/56 L Pulse Oximetry 95 96 12/01/18 03:48 12/01/18 04:00 12/01/18 08:00 Temperature 97.5 F L 98.1 F Pulse Rate 68 66 69 Respiratory Rate 18 17 Blood Pressure 115/61 131/60 Pulse Oximetry 94 L 95 12/01/18 12:00 Temperature 98.3 F Pulse Rate 89 Respiratory Rate 17 Blood Pressure 99/51 L Pulse Oximetry 97 Intake & Output 12/01/18 12/01/18 12/02/18 06:59 18:59 06:59 Intake Total 1400 / 1400 Balance 1400 / 1400 Weight 78 kg Intake: Oral 1400 / 1400 Other: # Incontinent Voids 3 Date of Last Bowel Movement 12/01/18 12/01/18 # Bowel Movements 1 # Incontinent Bowel Movements 3 2 Narrative: GENERAL: Well-nourished well-developed, not in acute distress SKIN: Cool and dry, no generalized rash HEAD: Atraumatic. Normocephalic. No temporal or scalp tenderness. EYES: Pupils equal round and reactive. Scleral icterus. No injection or drainage. No petechia ENT: Nothing abnormal detected NECK: Trachea midline. Supple, nontender, no meningeal signs. CARDIOVASCULAR: HS audible. RESPIRATORY: Clear to auscultation bilaterally. GASTROINTESTINAL: Abdomen soft diffuse mild tenderness noted, most pronounced in the bilateral lower quadrants. MUSCULOSKELETAL: Extremities without clubbing, cyanosis. NEUROLOGICAL: Alert oriented 3. Nonfocal. Psych cooperative IV line sites ok. Assessment and Plan - Assessment (1) End-stage renal disease on hemodialysis Code(s): N18.6 - End stage renal disease; Z99.2 - Dependence on renal dialysis Status: Acute Plan: Patient with End stage renal disease, on HD MWF. Patient has been on HD MWF. Chronic Hypotension, on Midodrine and Florinef. Seen by ID, on Vancomycin PO. (2) C. difficile diarrhea Code(s): A04.72 - Enterocolitis due to Clostridium difficile, not specified as recurrent Status: Acute Plan: HX of C difficile and recent antibiotics. Now positive again. On probiotics and oral vancomycin. (3) Syncope Code(s): R55 - Syncope and collapse Status: Acute Qualifiers: Syncope type: unspecified Qualified Code(s): R55 - Syncope and collapse Plan: Head CT negative, work up underway. (4) Diabetes Code(s): E11.9 - Type 2 diabetes mellitus without complications Status: Acute Plan: Maintain blood sugar between 140 mg/dl to 180 mg/dl while hospitalized. On insulin. Better controlled today.
[2018-12-02] MEDS: Insulin NovoLOG Aspart Correctional Sugar Inj SQ SCH ×5 (03:41→23:06)
[2018-12-02 08:47] LABS: Carbon Dioxide 28.4 meq/L (21.0-32.0); Potassium 3.7 meq/L (3.5-5.1)
[2018-12-02] MEDS: Lactobacillus Acidophilus/L. Spores Tablet PO SCH (09:37)
[2018-12-02] MEDS: Amiodarone 200 MG Tablet PO SCH (09:37)
[2018-12-02] MEDS: Heparin - SQ 10,000 UNITS/ML Vial SQ SCH ×2 (09:38→20:39)
--- NOTE | 2018-12-02 10:43 | P.PNIM ---
Subjective Interval history: patient still having diarrhea, reports 2 bm so far this morning. No dizziness or lightheadedness. Patient's daughter Liane is at bedside. Physical Exam Vital signs: Vital Signs 12/01/18 12:00 12/01/18 20:00 12/02/18 00:00 Temperature 98.3 F 97.5 F L 98.0 F Pulse Rate 89 68 65 Respiratory Rate 17 18 18 Blood Pressure 99/51 L 98/48 L 107/59 L Pulse Oximetry 97 97 96 12/02/18 04:00 Temperature Pulse Rate 65 Respiratory Rate Blood Pressure Pulse Oximetry Intake & Output 12/01/18 12/02/18 12/02/18 18:59 06:59 18:59 Intake Total 1600 / 1600 Balance 1600 / 1600 Weight 81.4 kg Intake: Oral 1599 / 1600 Other: # Voids 2 Date of Last Bowel Movement 12/01/18 12/01/18 # Bowel Movements 1 # Incontinent Bowel Movements 3 Narrative: GENERAL: elderly man, not in distress, laying on bed. HEENT:not pale,anicteric, moist mucous membranes. Forehead lesion noted. CARDIOVASCULAR: RRR,s1s2 normal, without murmurs, gallops, or rubs. RESPIRATORY: Clear to auscultation. Breath sounds equal bilaterally. No wheezes , rales, or rhonchi. GASTROINTESTINAL: Abdomen soft, non-tender, nondistended. 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 Rt forearm dressing. NEURO: Alert & Oriented x4 to person, place, time, situation. Moves all ext x4 Results Labs CBC & Chem 7: 11/30/18 08:25 12/02/18 07:24 Labs: Microbiology 11/30/18 18:05 Blood - Line Aerobic Blood Culture - Preliminary No growth in 1 day 11/30/18 18:05 Blood - Line Anaerobic Blood Culture - Preliminary No growth in 1 day 11/30/18 15:54 Blood - Peripheral Aerobic Blood Culture - Preliminary No growth in 1 day 11/30/18 15:54 Blood - Peripheral Anaerobic Blood Culture - Preliminary No growth in 1 day Assessment and Plan (1) End-stage renal disease on hemodialysis: Code(s): N18.6 - End stage renal disease; Z99.2 - Dependence on renal dialysis Status: Acute (2) C. difficile diarrhea: Code(s): A04.72 - Enterocolitis due to Clostridium difficile, not specified as recurrent Status: Acute (3) Syncope: Code(s): R55 - Syncope and collapse Status: Acute (4) Diabetes: Code(s): E11.9 - Type 2 diabetes mellitus without complications Status: Acute Plan 78 yo M with h/o ESRD on HD MWF schedule, DM type 2, C.diff s/p fecal transplant presented with a syncopal episode. 12/02-patient feels better,but still having diarrhea. No change in plans below. 1.Syncope: etiology in this patient is likely volume depletion in the setting of ongoing diarrhea. Hypotensive episode during HD likely related to volume depletion. CT head,ECHO unremarkable. Unclear why carotid doppler was done, but was negative as well. -patient has h/o hypotension and is on Midodrine/Fludrocortisone. -encourage PO fluid intake 2. 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 Cont PO Vanc and Fidaxomicin. ID following. 3. DM type 2- had hypoglycemia to 48 2 days ago. Insulin on hold. Avoid tight glucose control in this patient given his comorbidities. A1C pending 4.ESRD on HD-cont as per renal schedule. 5.Anemia of ESRD-receiving EPO during HD 6.Hypocalcemia-check vit D level. DVT ppx with heparin. d/w patient and his daughter at bedside. 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
[2018-12-02 11:03] LABS: Hemoglobin A1c 4.5 % (4.3-6.0)
--- NOTE | 2018-12-02 19:28 | P.PNNP ---
Subjective Interval history: Patient seen in the afternoon, alert, no SOB, not in distress. Physical Exam Vital signs: Vital Signs 12/01/18 20:00 12/02/18 00:00 12/02/18 04:00 Temperature 97.5 F L 98.0 F Pulse Rate 68 65 65 Respiratory Rate 18 18 Blood Pressure 98/48 L 107/59 L Pulse Oximetry 97 96 12/02/18 08:00 12/02/18 12:00 12/02/18 16:00 Temperature 98.4 F 97.8 F 97.6 F Pulse Rate 78 67 75 Respiratory Rate 18 19 18 Blood Pressure 138/71 132/84 161/77 H Pulse Oximetry 95 96 96 Intake & Output 12/02/18 12/02/18 12/03/18 06:59 18:59 06:59 Intake Total 1600 / 1600 Balance 1600 / 1600 Weight 81.4 kg Intake: Oral 1600 / 1600 Other: # Voids 2 Date of Last Bowel Movement 12/01/18 12/02/18 # Incontinent Bowel Movements 3 Narrative: GENERAL: Well-nourished well-developed, not in acute distress SKIN: Cool and dry, no generalized rash HEAD: Atraumatic. Normocephalic. No temporal or scalp tenderness. EYES: Pupils equal round and reactive. Scleral icterus. No injection or drainage. No petechia ENT: Nothing abnormal detected NECK: Trachea midline. Supple, nontender, no meningeal signs. CARDIOVASCULAR: HS audible. RESPIRATORY: Clear to auscultation bilaterally. GASTROINTESTINAL: Abdomen soft diffuse mild tenderness noted, most pronounced in the bilateral lower quadrants. MUSCULOSKELETAL: Extremities without clubbing, cyanosis. NEUROLOGICAL: Alert oriented 3. Nonfocal. Psych cooperative IV line sites ok. Assessment and Plan - Assessment (1) End-stage renal disease on hemodialysis Code(s): N18.6 - End stage renal disease; Z99.2 - Dependence on renal dialysis Status: Acute Plan: Patient with End stage renal disease, on HD MWF. Patient has been on HD MWF. Chronic Hypotension, on Midodrine and Florinef. Seen by ID, on Vancomycin PO. HD will be in AM. (2) C. difficile diarrhea Code(s): A04.72 - Enterocolitis due to Clostridium difficile, not specified as recurrent Status: Acute Plan: HX of C difficile and recent antibiotics. Now positive again. On probiotics and oral vancomycin. (3) Syncope Code(s): R55 - Syncope and collapse Status: Acute Qualifiers: Syncope type: unspecified Qualified Code(s): R55 - Syncope and collapse Plan: Head CT negative, work up underway. (4) Diabetes Code(s): E11.9 - Type 2 diabetes mellitus without complications Status: Acute Plan: Maintain blood sugar between 140 mg/dl to 180 mg/dl while hospitalized. On insulin. Better controlled today.
[2018-12-03] MEDS: Insulin NovoLOG Aspart Correctional Sugar Inj SQ SCH ×5 (03:00→21:18)
[2018-12-03 08:08] LABS: Calcium 8.2 mg/dL (8.5-10.1); Carbon Dioxide 27.5 meq/L (21.0-32.0); Potassium 3.9 meq/L (3.5-5.1)
[2018-12-03] MEDS: Amiodarone 200 MG Tablet PO SCH (12:15)
[2018-12-03] MEDS: Lactobacillus Acidophilus/L. Spores Tablet PO SCH (12:16)
[2018-12-03] MEDS: Heparin - SQ 10,000 UNITS/ML Vial SQ SCH ×2 (12:16→21:14)
--- NOTE | 2018-12-03 14:59 | P.PNNP ---
Subjective Interval history: Patient seen in AM during hemodialysis. No shortness of breath, nausea, or vomiting. <Karin Shirley - Last Filed: 12/03/18 14:53> Physical Exam Vital signs: Vital Signs 12/02/18 16:00 12/02/18 20:00 12/03/18 00:00 Temperature 97.6 F 98.2 F 98.0 F Pulse Rate 75 66 62 Respiratory Rate 18 17 17 Blood Pressure 161/77 H 123/54 L 137/58 L Pulse Oximetry 96 98 97 12/03/18 04:00 12/03/18 08:00 12/03/18 12:00 Temperature 98.0 F 97 F L 97.9 F Pulse Rate 69 67 75 Respiratory Rate 18 16 16 Blood Pressure 136/78 134/73 103/33 L Pulse Oximetry 99 96 97 Intake & Output 12/02/18 12/03/18 12/03/18 18:59 06:59 18:59 Intake Total 200 / 200 Output Total 1500 / 1500 Balance 200 / 200 -1500 / -1500 Weight 82.2 kg Intake: Oral 200 / 200 Output: Hemodialysis Amount 1500 / 1500 Other: # Voids 1 Date of Last Bowel Movement 12/02/18 12/02/18 # Incontinent Bowel Movements 1 Narrative: GENERAL: Well-nourished well-developed, not in acute distress SKIN: Cool and dry, no generalized rash NECK: Trachea midline. Supple, nontender, no JVD CARDIOVASCULAR: HS audible. RESPIRATORY: Clear to auscultation bilaterally. GASTROINTESTINAL: Abdomen soft diffuse mild tenderness noted, most pronounced in the bilateral lower quadrants. MUSCULOSKELETAL: Extremities without clubbing, cyanosis. NEUROLOGICAL: Alert oriented 3 <Karin Shirley - Last Filed: 12/03/18 14:53> Vital signs: Vital Signs 12/02/18 20:00 12/03/18 00:00 12/03/18 04:00 Temperature 98.2 F 98.0 F 98.0 F Pulse Rate 66 62 69 Respiratory Rate 17 17 18 Blood Pressure 123/54 L 137/58 L 136/78 Pulse Oximetry 98 97 99 12/03/18 08:00 12/03/18 12:00 12/03/18 16:00 Temperature 97 F L 97.9 F 98 F Pulse Rate 67 75 77 Respiratory Rate 16 16 16 Blood Pressure 134/73 103/33 L 110/59 L Pulse Oximetry 96 97 96 Intake & Output 12/02/18 12/03/18 12/03/18 18:59 06:59 18:59 Intake Total 200 / 200 240 / 240 Output Total 1500 / 1500 Balance 200 / 200 -1260 / -1260 Weight 82.2 kg Intake: Oral 200 / 200 240 / 240 Output: Hemodialysis Amount 1500 / 1500 Other: # Voids 1 Date of Last Bowel Movement 12/02/18 12/02/18 12/03/18 # Bowel Movements 2 # Incontinent Bowel Movements 1 <Odilia Sawyer Q - Last Filed: 12/03/18 18:46> Assessment and Plan - Assessment (1) End-stage renal disease on hemodialysis Code(s): N18.6 - End stage renal disease; Z99.2 - Dependence on renal dialysis Status: Acute Plan: Patient with End stage renal disease, on HD MWF. Chronic Hypotension, continue Midodrine and Florinef. Epogen with dialysis Seen in AM during dialysis, 3 k bath plan to remove 1.5 liters, tolerating well. (2) C. difficile diarrhea Code(s): A04.72 - Enterocolitis due to Clostridium difficile, not specified as recurrent Status: Acute Plan: HX of C difficile and recent antibiotics. Now positive again. On probiotics and oral vancomycin. (3) Diabetes Code(s): E11.9 - Type 2 diabetes mellitus without complications Status: Acute Plan: Maintain blood sugar between 140 mg/dl to 180 mg/dl while hospitalized. On insulin. Some low blood sugars noted today. <Karin Shirley - Last Filed: 12/03/18 14:53> - Assessment (1) End-stage renal disease on hemodialysis Code(s): N18.6 - End stage renal disease; Z99.2 - Dependence on renal dialysis Status: Acute Plan: Patient seen and examined, agree with above. HD done in AM and 1.5 liters removed. (2) C. difficile diarrhea Code(s): A04.72 - Enterocolitis due to Clostridium difficile, not specified as recurrent Status: Acute (3) Diabetes Code(s): E11.9 - Type 2 diabetes mellitus without complications Status: Acute <Mayco Sawyer - Last Filed: 12/03/18 18:46>
--- NOTE | 2018-12-03 15:37 | P.PNID ---
Subjective Remarks: Mr. 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 Manjeet Posada as outpatient. Patient's daughter provided the history and she reports that after transplantation he did fairly okay until recently when in August 2018 he was admitted at [facility] for hemodialysis catheter infection. She goes on to report that for the hemodialysis catheter he received IV antibiotics and his catheter was changed and she thinks that the antibiotics were stopped in October 2018. Details of the stop date not known. She then goes on to report that he was in a rehab center where he may have developed diarrhea and started on vancomycin oral again. Patient was discharged from rehab approximately 2 weeks prior to this admission and has been undergoing hemodialysis Monday at the hemodialysis center. Patient's daughter reports that he was at hemodialysis on November 28, 2017 and 10 minutes into the hemodialysis session patient had hypotension and his hemodialysis session was stopped. He thereafter his vitals improved and so he was discharged home as patient reportedly refused transportation to the ED. Patient then became dizzy and lightheaded and fell to the ground while in the bathroom. EMS was called and patient was noted to be hypotensive and had blacked out. He has a 3-day history of watery, explosive diarrhea that is foul-smelling. He denies any chest pain or shortness of breath. Intermittent crampy abdominal pain. No focal neurologic deficits. No fever/chills. Infectious diseases consulted for evaluation and management of C. difficile positive diarrhea in a patient status post fecal transplantation. Overnight events reviewed No fever No rash BMs 2 semi formed. Antibiotics: Vanco Difficid Lines: Lines ok Past Medical History: reviewed Allergies/Adverse Reactions: Allergies No Known Allergies Allergy (Verified 11/28/18 15:57) Objective Vital Signs 12/02/18 16:00 12/02/18 20:00 12/03/18 00:00 Temperature 97.6 F 98.2 F 98.0 F Pulse Rate 75 66 62 Respiratory Rate 18 17 17 Blood Pressure 161/77 H 123/54 L 137/58 L Pulse Oximetry 96 98 97 12/03/18 04:00 12/03/18 08:00 12/03/18 12:00 Temperature 98.0 F 97 F L 97.9 F Pulse Rate 69 67 75 Respiratory Rate 18 16 16 Blood Pressure 136/78 134/73 103/33 L Pulse Oximetry 99 96 97 Intake & Output 12/02/18 12/03/18 12/03/18 18:59 06:59 18:59 Intake Total 200 / 200 Output Total 1500 / 1500 Balance 200 / 200 -1500 / -1500 Weight 82.2 kg Intake: Oral 200 / 200 Output: Hemodialysis Amount 1500 / 1500 Other: # Voids 1 Date of Last Bowel Movement 12/02/18 12/02/18 # Incontinent Bowel Movements 1 11/30/18 18:05 Blood - Line Aerobic Blood Culture - Preliminary No growth in 3 days 11/30/18 18:05 Blood - Line Anaerobic Blood Culture - Preliminary No growth in 3 days 11/30/18 15:54 Blood - Peripheral Aerobic Blood Culture - Preliminary No growth in 3 days 11/30/18 15:54 Blood - Peripheral Anaerobic Blood Culture - Preliminary No growth in 3 days 11/28/18 18:38 Clean Catch Urine Urine Culture - Final No growth in 48 hours Lab - Chemistry Results 12/01/18 12/01/18 12/01/18 14:29 17:39 22:08 Sodium Potassium Chloride Carbon Dioxide Anion Gap BUN Creatinine Estimated GFR POC Glucose 108 129 H Random Glucose Hemoglobin A1c 4.5 Calcium 12/02/18 12/02/18 12/02/18 03:23 07:24 07:52 Sodium 143 Potassium 3.7 Chloride 107 Carbon Dioxide 28.4 Anion Gap 8 BUN 25 H Creatinine 5.29 H Estimated GFR 11 L POC Glucose 95 100 Random Glucose 87 Hemoglobin A1c Calcium 8.0 L 12/02/18 12/02/18 12/02/18 11:56 17:30 20:38 Sodium Potassium Chloride Carbon Dioxide Anion Gap BUN Creatinine Estimated GFR POC Glucose 127 H 125 H 185 H Random Glucose Hemoglobin A1c Calcium 12/03/18 12/03/18 12/03/18 03:18 05:44 11:59 Sodium 141 Potassium 3.9 Chloride 104 Carbon Dioxide 27.5 Anion Gap 10 BUN 29 H Creatinine 5.60 H Estimated GFR 10 L POC Glucose 95 68 Random Glucose 73 L Hemoglobin A1c Calcium 8.2 L 12/03/18 12/03/18 12/03/18 12:06 12:09 12:12 Sodium Potassium Chloride Carbon Dioxide Anion Gap BUN Creatinine Estimated GFR POC Glucose 41 L* 94 92 Random Glucose Hemoglobin A1c Calcium Imaging: ITS Impressions Carotid Doppler Study 11/28/18 00:00 CONCLUSION: No hemodynamically significant stenosis involving either carotid artery. Antegrade flow involving both vertebral arteries. Chest X-Ray 11/28/18 16:33 CONCLUSION: Dialysis catheter in good position. Lungs are clear Head CT 11/28/18 16:33 CONCLUSION: 1. No acute intracranial abnormality. . Physical Exam: GENERAL: Well-nourished well-developed, not in acute distress SKIN: Cool and dry, no generalized rash HEAD: Atraumatic. Normocephalic. No temporal or scalp tenderness. EYES: Pupils equal round and reactive. Scleral icterus. No injection or drainage. No petechia ENT: Nothing abnormal detected NECK: Trachea midline. Supple, nontender, no meningeal signs. CARDIOVASCULAR: HS audible. RESPIRATORY: Clear to auscultation bilaterally. GASTROINTESTINAL: Abdomen soft diffuse mild tenderness noted, most pronounced in the bilateral lower quadrants. MUSCULOSKELETAL: Extremities without clubbing, cyanosis. NEUROLOGICAL: Alert oriented 3. Nonfocal. Psych cooperative IV line sites ok. Assessment and Plan - Plan Hypotension on admission rule out sepsis C. 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 Status post left BKA amputation Recommendations: Continue oral vancomycin for additional 2 weeks on discharge. Needs follow up with Dr.Ketul Posada. Ok to discontinue if Dificid expensive and cannot be arranged outpatient. BCX negative. Avoid systemic antibiotics. 2D ECHO with no vegetations. dw Dr.C Tere S[place]. Will sign off please call back if any change in clinical condition or questions.
--- NOTE | 2018-12-03 16:42 | P.DS ---
DS: Providers Date of admission: 11/29/18 15:14 Primary care physician: UNKNOWN Consults: 11/28/18 20:33 Consult to Nephrology Routine Consulting Provider: Mayco Sawyer Does the patient have a Package Clerk who follows them?: Yes Preferred Nephrology Gas Adjuster:: Marko Valenzuela Reason for Consultation: ESRD on dialysis - last dialyzed 11/28 Notified:: Service Spoke with:: [place] Date Notified:: 11/28/18 Comments:: DR VALENZUELA IS ON [facility] IN THE CALL CENTER. CALL PLACED TO DR MEDEIROS @2100. DR MEDEIROS PAGED AGAIN FOR THE 3RD TIME, AWAITING CALL BACK. @[address] MEDEIROS, INSTRUCTED "TO PLEASE GIVE CONSULT TO WHO EVER IS BELLOWS CHARGER ASSEMBLER, I JUST WANT PT DIALYZED, I DON'T HAVE TIME TO CHANGE THE ORDER" DICUSSED WITH WEB ASSISTANT-HEMALATHA DAVIDSON Ordering Provider: CHENTE 11/29/18 15:22 Consult to Infectious Diseases Routine Consulting Provider: Sury Naranjo Reason for Consultation: recurrent c-diff s/p fecal transplant in the past Notified:: Service Spoke with:: Valeria Date Notified:: 11/29/18 Time Notified:: 15:26 Ordering Provider: SWETA DS: Summary 78 yo M with h/o ESRD on HD MWF schedule, DM type 2, C.diff s/p fecal transplant presented with a syncopal episode. He was found to have diarrhea and was volume depleted. Hospital course by active problem: 1.Syncope: etiology in this patient is likely volume depletion in the setting of ongoing diarrhea. Hypotensive episode during HD likely related to volume depletion. CT head,ECHO unremarkable. Unclear why carotid doppler was done, but was negative as well. -patient has h/o hypotension and is on Midodrine/Fludrocortisone. He responded well to IV hydration, BP improved. Patient has no dizziness or lightheadedness presently. He has been encouraged to take adequate amounts of stool. 2. S/p fecal transplant with C.diff associated diarrhea-ID was consulted, patient was started on Vanc and Fidaxomicin. diarrhea has improved.He was discharged on oral Vancomycin only to complete 2 weeks of treatment. He is to follow up with Dr. Manjeet Posada on discharge. 3.H/o DM type 2- Patient had episodes of hypoglycemia while inhouse, insulin was discontinued. A1C was 4.5% during this hospitalization, as such this patient does not need to be on insulin, lifestyle measures should suffice. Insulin glargine has been discontinued. Avoid tight glucose control in this patient given his comorbidities. 4.ESRD on HD-patient was dialyzed as per usual renal schedule. 5.Anemia of ESRD-receiving EPO during HD 6.Hypocalcemia-check vit D level. patient is medically stable for discharge home. Time Spent with Patient Total time spent providing and/or coordinating discharge services:>30 minutes Quality: VTE Deep Vein Thrombosis/Pulmonary Embolism Present on Admission: No Results Labs on day of discharge: Labs from last 24 hours 12/03/18 12/03/18 12/03/18 12:12 12:09 12:06 Sodium Potassium Chloride Carbon Dioxide Anion Gap BUN Creatinine Estimated GFR POC Glucose 92 94 41 L* Random Glucose Calcium 12/03/18 12/03/18 12/03/18 11:59 05:44 03:18 Sodium 141 Potassium 3.9 Chloride 104 Carbon Dioxide 27.5 Anion Gap 10 BUN 29 H Creatinine 5.60 H Estimated GFR 10 L POC Glucose 68 95 Random Glucose 73 L Calcium 8.2 L 12/02/18 12/02/18 20:38 17:30 Sodium Potassium Chloride Carbon Dioxide Anion Gap BUN Creatinine Estimated GFR POC Glucose 185 H 125 H Random Glucose Calcium Preliminary micro results at discharge 11/30/18 18:05 Aerobic Blood Culture - Preliminary Blood - Line No growth in 3 days Anaerobic Blood Culture - Preliminary No growth in 3 days 11/30/18 15:54 Aerobic Blood Culture - Preliminary Blood - Peripheral No growth in 3 days Anaerobic Blood Culture - Preliminary No growth in 3 days Impressions ITS Impressions Carotid Doppler Study 11/28/18 00:00 CONCLUSION: No hemodynamically significant stenosis involving either carotid artery. Antegrade flow involving both vertebral arteries. Chest X-Ray 11/28/18 16:33 CONCLUSION: Dialysis catheter in good position. Lungs are clear Head CT 11/28/18 16:33 CONCLUSION: 1. No acute intracranial abnormality. . Discharge Plan Discharge Disposition Patient Disposition: 01 Discharge Home Discharge Condition Condition: Stable Discharge Order Discharge Orders: Discharge Order (Routine); Ordered 12/03/18 Ordered By: Nathen Beach Discharge Details Anticipated Discharge Date: 12/03/18 Physicians Team Primary Care Provider: UNKNOWN, Attending Provider: Nathen Beach Other Providers: Mayco Sawyer ; Sury Naranjo Rxs /Orders / Referrals /Forms Prescriptions: New vancomycin 500 mg Recon Soln 125 mg PO QID 14 Days Qty: 25 RF: 0 Continue atorvastatin 10 mg Tablet 10 mg PO QPM RF: 0 amiodarone 200 mg Tablet 200 mg PO DAILY RF: 0 aspirin [Aspir-81] 81 mg Tablet,Delayed Release (Dr/Ec) 81 mg PO DAILY RF: 0 famotidine 20 mg Tablet 20 mg PO DAILY RF: 0 fluticasone 44 mcg/actuation Hfa Aerosol Inhaler 1 inh INHALATION Q12H RF: 0 fludrocortisone 0.1 mg Tablet 0.2 mg PO DAILY RF: 0 midodrine 10 mg Tablet 10 mg PO BID RF: 0 vitamin B complex-folic acid 0.4 mg Tablet 1 tab PO DAILY RF: 0 acidophilus-sporogenes 35 million- 25 million cell Tablet 1 tab PO DAILY RF: 0 Discontinued insulin glargine 100 unit/mL Solution 15 unit SUBCUT HS RF: 0 Referrals: UNKNOWN, [Primary Care Provider] - See Instructions ( Follow up with your Primary care if you do not have one: *[facility] offers same day APPT. Call the morning of you would like to be seen; Office opens at 8:00am. [facility] Address: [address] [place] [address] ) Discharge Instructions Patient Printed Instructions: Vancomycin (By mouth), Dialysis Diet (GEN), C Diff (Clostridium Difficile) Infection (GEN), End Stage Kidney Disease (DC) Additional Instructions: You presented to the hospital after having passed out, and was having diarrhea. Your blood pressure was low and you were found to be dehydrated and was started on intravenous hydration. You are encouraged to take enough fluids by mouth,at least 6-8 glasses per day. Stool studies revealed a C.diff infection for which you were started on oral Vancomycin which you should take for 2 weeks as recommended by the infectious disease doctor. You will need to follow up with Dr. Manjeet Posada,please make an appointment. There were no changes to your usual medication, continue taking as prescribed. Continue with your outpatient hemodialysis as per usual schedule. You had several episodes of low blood sugar while here,your A1C level was 4.5%, your insulin has been stopped, please do not take it. Follow up with your primary care doctor within 1 week for re-evaluation. Discharge Interventions Interventions: Discharge Planning - Case Management Last Done: 12/03/18 12:13 Status ED Status: Left Department
[2018-12-04] MEDS: Insulin NovoLOG Aspart Correctional Sugar Inj SQ SCH ×2 (02:18→09:54)
[2018-12-04 08:45] VITALS: BP 149/72; PULSE 66; RESP 16; TEMP 98; O2SAT 95
[2018-12-04] MEDS: Heparin - SQ 10,000 UNITS/ML Vial SQ SCH (09:40)
[2018-12-04] MEDS: Amiodarone 200 MG Tablet PO SCH (09:40)
[2018-12-04] MEDS: Lactobacillus Acidophilus/L. Spores Tablet PO SCH (09:41)
--- NOTE | 2018-12-04 10:28 | P.PNIM ---
Subjective Interval history: Patient laying down in bed. He is not in any acute distress. No other complaints from the patient. Physical Exam Vital signs: Vital Signs 12/03/18 12:00 12/03/18 16:00 12/03/18 20:00 Temperature 97.9 F 98 F 98.0 F Pulse Rate 75 77 69 Respiratory Rate 16 16 20 Blood Pressure 103/33 L 110/59 L 117/57 L Pulse Oximetry 97 96 95 12/04/18 00:00 12/04/18 04:00 12/04/18 08:00 Temperature 97.6 F 98.2 F 98 F Pulse Rate 67 71 66 Respiratory Rate 20 20 16 Blood Pressure 128/69 140/70 149/72 H Pulse Oximetry 98 98 95 Intake & Output 12/03/18 12/04/18 12/04/18 18:59 06:59 18:59 Intake Total 240 / 240 700 / 700 Output Total 1500 / 1500 1000 / 1000 Balance -1260 / -1260 -300 / -300 Weight 82.2 kg Intake: Oral 240 / 240 700 / 700 Output: Urine 1000 / 1000 Hemodialysis Amount 1500 / 1500 Other: # Incontinent Voids 1 Date of Last Bowel Movement 12/03/18 12/03/18 # Bowel Movements 2 # Incontinent Bowel Movements 1 Narrative: Patient laying down in bed S1S2 CTA b/l abd soft, nontender, normal bowel sounds no edema of the exts. s/p bka left lower ext No focal neuro deficits. Results Labs CBC & Chem 7: 11/30/18 08:25 12/03/18 05:44 Labs: Microbiology 11/30/18 18:05 Blood - Line Aerobic Blood Culture - Preliminary No growth in 3 days 11/30/18 18:05 Blood - Line Anaerobic Blood Culture - Preliminary No growth in 3 days 11/30/18 15:54 Blood - Peripheral Aerobic Blood Culture - Preliminary No growth in 3 days 11/30/18 15:54 Blood - Peripheral Anaerobic Blood Culture - Preliminary No growth in 3 days Assessment and Plan Plan This patient is an 78 y/o male with ESRD on HD MWF, DM II, C diff s/p fecal transplant who presented with a syncopal episode 1. Syncope Patient presented with volume depletion and hypotensive in the setting of diarrhea. Likely the cause of the patient's syncopal episode. Cont Midodrine, Fludrocortisone. 2. C diff recurrent s/p fecal transplant in 2018. ID following the patient and recommends Vanco and Fidaxomicin po for two weeks. 3. DM II Follow up with pcp in 1 week. Levemir held on discharge due to Hypoglycemia in the hospital Blood sugars been ranging between 90 - 150 over the past 24 hrs. 4. ESRD on HD 5. Anemia 2/2 ESRD Continue HD on MWF EPO during HD Heparin for DVT prophylaxis. Progress Note: Quality VTE Deep Vein Thrombosis/Pulmonary Embolism Present on Admission: No
--- NOTE | 2018-12-04 14:55 | P.DCO ---
Physical Therapy Order: Evaluate and treat Occupational Therapy Order: Evaluate and treat Home Health Nursing Order: Medical education and Nursing assessment with vital signs Case Management Consult Case Management Consult-Home Health: Yes I have seen patient Lucho Grewal on 12/04/18. My clinical findings support the need for the requested home health care services because: I certify that my clinical findings support that this patient is homebound because: Unsafe to leave home unassisted
--- NOTE | 2018-12-04 15:44 | P.PNNP ---
Subjective Interval history: Seen in AM. Resting comfortable with no complaints. Plan for discharge today. <Karin Shirley - Last Filed: 12/04/18 15:39> Physical Exam Vital signs: Vital Signs 12/03/18 16:00 12/03/18 20:00 12/04/18 00:00 Temperature 98 F 98.0 F 97.6 F Pulse Rate 77 69 67 Respiratory Rate 16 20 20 Blood Pressure 110/59 L 117/57 L 128/69 Pulse Oximetry 96 95 98 12/04/18 04:00 12/04/18 08:00 Temperature 98.2 F 98 F Pulse Rate 71 66 Respiratory Rate 20 16 Blood Pressure 140/70 149/72 H Pulse Oximetry 98 95 Intake & Output 12/03/18 12/04/18 12/04/18 18:59 06:59 18:59 Intake Total 240 / 240 700 / 700 Output Total 1500 / 1500 1000 / 1000 Balance -1260 / -1260 -300 / -300 Weight 82.2 kg Intake: Oral 240 / 240 700 / 700 Output: Urine 1000 / 1000 Hemodialysis Amount 1500 / 1500 Other: # Incontinent Voids 1 Date of Last Bowel Movement 12/03/18 12/03/18 12/03/18 # Bowel Movements 2 # Incontinent Bowel Movements 1 Narrative: GENERAL: Well-nourished well-developed, not in acute distress SKIN: Cool and dry, no generalized rash NECK: Trachea midline. Supple, nontender, no JVD CARDIOVASCULAR: HS audible. RESPIRATORY: Clear to auscultation bilaterally. GASTROINTESTINAL: Abdomen soft with positive bowel sounds. MUSCULOSKELETAL: Extremities without clubbing, cyanosis. NEUROLOGICAL: Alert oriented 3 <Karin Shirley - Last Filed: 12/04/18 15:39> Vital signs: Vital Signs 12/04/18 00:00 12/04/18 04:00 12/04/18 08:00 Temperature 97.6 F 98.2 F 98 F Pulse Rate 67 71 66 Respiratory Rate 20 20 16 Blood Pressure 128/69 140/70 149/72 H Pulse Oximetry 98 98 95 Intake & Output 12/04/18 12/04/18 12/05/18 06:59 18:59 06:59 Intake Total 700 / 700 Output Total 1000 / 1000 Balance -300 / -300 Weight 82.2 kg Intake: Oral 700 / 700 Output: Urine 1000 / 1000 Other: # Incontinent Voids 1 Date of Last Bowel Movement 12/03/18 12/03/18 # Incontinent Bowel Movements 1 <Odilia Sawyer Q - Last Filed: 12/04/18 20:46> Assessment and Plan - Assessment (1) End-stage renal disease on hemodialysis Code(s): N18.6 - End stage renal disease; Z99.2 - Dependence on renal dialysis Status: Acute Plan: Patient with End stage renal disease, on HD MWF. Chronic Hypotension, continue Midodrine and Florinef. Epogen with dialysis HD yesterday with removal of 1.5 liters Plan for discharge today, HD at Dr. [facility]. (2) C. difficile diarrhea Code(s): A04.72 - Enterocolitis due to Clostridium difficile, not specified as recurrent Status: Acute Plan: HX of C difficile and recent antibiotics. Now positive again. On probiotics and oral vancomycin. (3) Diabetes Code(s): E11.9 - Type 2 diabetes mellitus without complications Status: Acute Plan: Maintain blood sugar between 140 mg/dl to 180 mg/dl while hospitalized. On insulin. <Karin Shirley - Last Filed: 12/04/18 15:39> - Assessment (1) End-stage renal disease on hemodialysis Code(s): N18.6 - End stage renal disease; Z99.2 - Dependence on renal dialysis Status: Acute Plan: Patient seen and examined, agree with above. Has Chronic Hypotension, Continue HD MWF. To follow with Dr. Braun. (2) C. difficile diarrhea Code(s): A04.72 - Enterocolitis due to Clostridium difficile, not specified as recurrent Status: Acute (3) Diabetes Code(s): E11.9 - Type 2 diabetes mellitus without complications Status: Acute <Odilia Sawyer Q - Last Filed: 12/04/18 20:46>
== END 2018-12-04 11:00 | disposition home health service (06) | DRG 371 ==
LOC: NEDA 15:35 → NEPC 15:35 → NEDA 21:05 → NEPGCP 21:08 → N07 11-30 21:28
PROVIDERS: ADMIT Hospitalist; ATTEND Hospitalist
DX: Z87.891 Personal history of nicotine dependence; I48.91 Unspecified atrial fibrillation; I95.89 Other hypotension; A04.71 Enterocolitis due to Clostridium difficile, recurrent; E11.22 Type 2 diabetes mellitus with diabetic chronic kidney disease; E87.6 Hypokalemia; E78.5 Hyperlipidemia, unspecified; E86.9 Volume depletion, unspecified; N18.6 End stage renal disease; E83.51 Hypocalcemia; R55 Syncope and collapse; E11.649 Type 2 diabetes mellitus with hypoglycemia without coma; Z89.512 Acquired absence of left leg below knee; Z79.4 Long term (current) use of insulin; Z86.14 Personal history of Methicillin resistant Staphylococcus aureus infection; H91.90 Unspecified hearing loss, unspecified ear; D63.1 Anemia in chronic kidney disease; Z99.2 Dependence on renal dialysis
CPT/HCPCS: 70450; 71010; 71045; 80048; 80053; 80074; 81001; 82306; 82947; 82948; 82962; 83036; 83520; 83605; 83735; 83880; 84484; 85025; 85610; 85730; 87040; 87086; 87205; 87324; 87328; 87329; 87449; 87493; 87506; 90760; 90774; 90775; 90784; 90935; 93005; 93306; 93880; 96360; 96372; 96374; 96375; 99285; C8952; G0378; J0886; J1580; J1644; J1815; J7030; Q4055; Q4081